=== PATIENT | male | born 1950 | race Caucasian/White ===

== ENCOUNTER 2016-12-06 03:05 | Inpatient (IN) | payer OTHER ==
[~2016-12-06] VITALS: Ht 172.7 cm; Wt 62.0 kg
[2016-12-06] VITALS (9 sets, daily range): BP systolic 103–113; BP diastolic 63–64; PULSE 62–88; TEMP 36.8–37.8; O2SAT 92–97; Ht 172.7 cm; Wt 62.0 kg
[~2016-12-06 03:05] MED LIST: ATOR-22 PO; CHOL1000 PO; CLOP1TAB15 PO; DLN100 PO; FOLI1TAB7 PO; IPRA1AER2 INH; LEVE500T PO; OLODATEROL/TIOTROP INH; OXGN; PHEN32.44 PO; VNTHFA/IN INH
[2016-12-06] MEDS ORDERED: IPRA1AER2 INH (04:05)
[2016-12-06] MEDS ORDERED: OXGN (04:05)
[2016-12-06] MEDS ORDERED: SYMIN160 INH (04:05)
[2016-12-06] MEDS ORDERED: ALBU18002 INH (04:05)
[2016-12-06 04:18] LABS: INR 1.1 (0.9-1.1); PROTHROMBIN TIME (PATIENT) 12.2 SECONDS (9.0-12.0)
[2016-12-06 04:28] LABS: ALT/SGPT 36 U/L (12-78); AST/SGOT 29 U/L (15-37); BLOOD UREA NITROGEN 16 mg/dl (7-18); BUN/CREATININE RATIO 20.1 (10-20); CALCIUM 7.8 mg/dl (8.5-10.1); CARBON DIOXIDE 28 mmol/L (21-32); CHLORIDE 107 mmol/L (98-107); CREATININE 0.78 mg/dl (0.60-1.40); GLUCOSE 158 mg/dl (70-99); POTASSIUM 3.7 mmol/L (3.5-5.1); SODIUM 139 mmol/L (136-145)
[2016-12-06 04:30] LABS: HEMATOCRIT 37.6 % (42-52); MEAN CORPUSCULAR HEMOGLOBIN 36.3 pg (25-34); MEAN CORPUSCULAR HGB CONC 34.6 g/dl (32-36); MEAN PLATELET VOLUME 9.8 fL (7.4-10.4); PLATELET COUNT 94 K/uL (130-400); RED BLOOD COUNT 3.58 M/uL (4.7-6.1); WHITE BLOOD COUNT 13.51 K/uL (4.8-10.8)
[2016-12-06 04:31] LABS: BASO % 0.1 %; BASO ABS # 0.01 K/uL (0-0.2); COMPLETE YES; DOHLE BODIES OCCASIONAL; IG% 0.3 %; LYMPH % 3.5 %; LYMPH ABS # 0.47 K/uL (1.2-3.4); MONO % 9.5 %; NEUT % 86.6 %; PLT ESTIMATE DECREASED
[2016-12-06 04:39] LABS: ALB/GLOB RATIO 1.2 (0.9-2); ALKALINE PHOSPHATASE 110 U/L (45-117); THYROID STIMULATING HORMONE 0.388 uIu/ml (0.300-4.500)
[2016-12-06 04:56] LABS: LYME DISEASE AB IGG NEG (NEG); LYME DISEASE AB IGM NEG (NEG)
[2016-12-06] MEDS ORDERED: ACETAMINOPHEN 500 MG TAB PO STA (06:26)
[2016-12-06] MEDS ORDERED: LEVOFLOXACIN 250 MG TAB PO STA (06:28)
[2016-12-06] MEDS ORDERED: METHYLPREDNISOLONE 125 MG VIAL IV STA (06:29)
[2016-12-06 06:46] LABS: URINE APPEARANCE CLEAR (CLEAR); URINE BILIRUBIN NEG (NEG); URINE COLOR YELLOW; URINE NITRITE NEG (NEG); URINE SPECIFIC GRAVITY 1.019 (1.000-1.030); UROBILINOGEN NEG (NEG); ZZUR CULT IF INDIC CLEAN CATCH YES
[2016-12-06 06:47] LABS: MANUAL MICROSCOPIC REQUIRED? NO; REVIEW REQ? NO
--- NOTE | 2016-12-06 07:21 | DIAGNOSTIC IMAGING REPORT ---
CERVICAL SPINE CT CT DOSE: HISTORY: Neck pain. fall, pain TECHNIQUE: Multiaxial CT images of the cervical spine were performed and reformatted in the sagittal and coronal plane without the use of contrast. A dose lowering technique was utilized adhering to the principles of ALARA. COMPARISON: Cervical spine MRI 06/13/2011. FINDINGS: Emphysema. No pneumothorax. No fracture or subluxation within the cervical spine. Straightening of the lower cervical spine. Prevertebral soft tissues and the C1-C2 interval are intact. Severe degenerative disc disease at C6-C7 and C7-T1. Fusion of the C5-C6 vertebral bodies. Posterior decompression and fusion from C3 through C6 with pedicle screws and rods. The hardware appears intact. IMPRESSION: No fractures within the cervical spine. Postoperative and degenerative changes as described above. Electronically signed by: Rodolfo Villarreal M.D. 12/06/2016 7:20 AM Dictated Date/Time: 12/06/2016 7:15 AM
--- NOTE | 2016-12-06 07:35 | DIAGNOSTIC IMAGING REPORT ---
HEAD WITHOUT CONTRAST (CT) CLINICAL HISTORY: 66 years-old Male presenting with fall. TECHNIQUE: Multidetector CT imaging of the head was performed without the use of intravenous contrast. IV contrast: None. A dose lowering technique was used consistent with the principles of ALARA (as low as reasonably achievable). COMPARISON: 06/13/2011. CT DOSE (mGy.cm): The estimated cumulative dose is 1051.82 mGy.cm. FINDINGS: Property Underwriter topogram: Unremarkable. Ventricles and sulci normal in size. Periventricular and subcortical white matter hypoattenuation, nonspecific but likely indicative of chronic small vessel ischemic change. Old lacunar infarcts in the right basal ganglia, several of which in the region of the posterior limb of the internal capsule are new from prior. Suspected old lacunar infarct in the subcortical white matter of the left frontal lobe, the appearance of which is unchanged from prior. No mass effect or midline shift. No acute territorial infarct. Trace acute subdural hematoma along the left frontotemporal convexity measuring 1 to 2 mm in thickness (for example series 2 image 16). Paranasal sinuses and mastoid air cells clear. Minimal cortical irregularity of the outer table along the squamosal portion of the left temporal bone.. IMPRESSION: 1. Findings concerning for trace acute subdural hematoma along the frontal convexity. Notably, this is discrepant from the preliminary report. If there is clinical need, confirmation with noncontrast MR brain could be obtained. 2. Incomplete fracture of the outer table of the squamosal portion of the left temporal bone suggested. The report will be called/faxed according to standard departmental protocol. Electronically signed by: Bryan Suarez M.D. 12/06/2016 7:33 AM Dictated Date/Time: 12/06/2016 7:28 AM
--- NOTE | 2016-12-06 07:37 | DIAGNOSTIC IMAGING REPORT ---
SINGLE VIEW CHEST CLINICAL HISTORY: Fall. FINDINGS: AP, portable, erect and semierect chest radiographs are compared to study dated 01/09/2016. The examination is degraded by portable technique and patient rotation. The heart is mildly enlarged and there is atherosclerotic calcification of the thoracic aorta. The pulmonary vasculature is noncongested. Advanced emphysema and chronic interstitial thickening are similar to previous. No airspace consolidation is seen typical for pneumonia and there is no large pleural effusion. No pneumothorax is seen. The skeletal structures are osteopenic. Degenerative change is noted throughout the thoracic spine. Fusion hardware is noted in the lower cervical spine. IMPRESSION: Cardiomegaly and emphysema. No acute cardiopulmonary abnormality is seen. Electronically signed by: Aman Diamond M.D. 12/06/2016 7:35 AM Dictated Date/Time: 12/06/2016 7:33 AM
--- NOTE | 2016-12-06 07:38 | DIAGNOSTIC IMAGING REPORT ---
PELVIS 1 OR 2 VIEW ROUTINE CLINICAL HISTORY: 66 years-old Male presenting with fall. TECHNIQUE: Single frontal view of the pelvis was obtained. COMPARISON: None. FINDINGS: Osteopenia suggested. Sacroiliac joints and pubic symphysis congruent. Hip joints congruent. Degenerative changes of the bilateral hip joints noted with grossly preserved joint space loss at least superiorly. Bony pelvis intact. Degenerative changes of the lower lumbar spine. Moderate stool burden. Atherosclerosis. IMPRESSION: 1. No acute osseous injury of the pelvis. 2. Suspected osteopenia. 3. Degenerative changes of the hips and lower spine. Electronically signed by: Bryan Suarez M.D. 12/06/2016 7:36 AM Dictated Date/Time: 12/06/2016 7:35 AM
[2016-12-06] MEDS ORDERED: SODIUM CHLORIDE 0.9% 1000ML 1,000 ML IV STA (07:40)
--- NOTE | 2016-12-06 08:11 | EMERGENCY ROOM VISIT NOTE ---
History Report prepared by Ran: Zabrina Ji Under the Supervision of: Dr. Glory Bejarano D.O. First contact with patient: 03:08 Chief Complaint: FALL Stated Complaint: FALL History of Present Illness The patient is a 66 year old male who presents to the Emergency Room with complaints of an episode of fall [employer]. He presents to the ED by EMS from home. He states he was crawling down the living room steps when he fell. He usually uses a walker to ambulate, but he was not using it today as he misplaced it. He remembers the fall and denies losing consciousness. His states that he seems confused. He states that his head is throbbing. His legs feel uncomfortable. He had some chest discomfort yesterday, but currently does not have any. He denies any vision changes, hip pain, or back pain. He has a history of seizures, but did not have any seizure activity today. He denies any drug use. He has chronic weakness in his legs and was told that he should go for an EMG at some point. He is on Plavix. He has a history of TIA. Source of History: patient, EMS Onset: [employer] Position: other (global) Quality: other (fall) Timing: other (episodic) Associated Symptoms: + headache, No LOC, No chest pain, No back pain Note: Pt denies vision changes, hip pain. Review of Systems See HPI for pertinent positives & negatives. A total of 10 systems reviewed and were otherwise negative. Past Medical & Surgical Medical Problems: (1) COPD (chronic obstructive pulmonary disease) (2) Diabetes mellitus, type II (3) History of seizures (4) History of TIA (transient ischemic attack) (5) Peripheral neuropathy (6) Tobacco use disorder Family History No pertinent family history stated. Social History Smoking Status: Current Every Day Smoker Alcohol Use: none Marital Status: Housing Status: lives with significant other Current/Historical Medications Scheduled Atorvastatin (Lipitor), 10 MG PO DAILY Budesonide/Formoterol Fumarate (Symbicort 160/4.5 Inhaler ), 2 PUFFS INH BID Cholecalciferol (Vitamin D3), 1 TAB PO BID Clopidogrel (Plavix), 75 MG PO DAILY Folic Acid (Folvite), 1 MG PO DAILY Ipratropium-Albuterol (Combivent Respimat), 1 PUFFS INH QID Levetiractam (Levetiracetam), 1,000 MG PO BID Phenobarbital (Phenobarbital), 129.6 MG PO BID Phenytoin Sodium (Dilantin), 200 MG PO BID Scheduled PRN Albuterol Sulfate (Proair Respiclick), 2 PUFFS INH TID PRN for SOB/Wheezing Home O2 Therapy (Oxygen), 2 LITERS NA PRN PRN for AMBULATION Allergies Coded Allergies: No Known Allergies (Unverified , 12/06/16) Physical Exam Vital Signs Date Time Temp Pulse Resp B/P (MAP) Pulse Ox O2 Delivery O2 Flow Rate FiO2 12/06/16 08:00 92 Room Air 12/06/16 07:42 79 20 98/60 92 Room Air 12/06/16 07:19 84 12/06/16 06:38 37.5 12/06/16 06:13 80 20 97/56 93 Room Air 12/06/16 06:12 94 Room Air 12/06/16 05:24 80 16 106/62 93 Room Air 12/06/16 04:01 80 18 102/57 91 Room Air 12/06/16 03:25 88 12/06/16 03:14 38.2 88 22 113/77 94 Room Air Physical Exam GENERAL: alert, well appearing, thin, no distress, non-toxic, smells of tobacco smoke HEAD: small abrasion to the inferolateral aspect of the left periorbital region. EYE EXAM: normal conjunctiva, PERRL and EOM's grossly intact OROPHARYNX: no exudate, no erythema, lips, buccal mucosa, and tongue normal and mucous membranes are dry NECK: supple, no nuchal rigidity, no adenopathy, non-tender LUNGS: Decreased breath sounds bilaterally. No wheezes, rhonchi, rales. Normal chest wall mechanics HEART: no murmurs, S1 normal and S2 normal ABDOMEN: abdomen soft, non-tender, normo-active bowel sounds, no masses, no rebound or guarding. BACK: Back is symmetrical on inspection and there is no deformity, no midline tenderness, no CVA tenderness. SKIN: no rashes and no bruising UPPER EXTREMITIES: upper extremities are grossly normal. LOWER EXTREMITIES: No pitting edema. NEURO EXAM: Normal sensorium, cranial nerves II-XII grossly intact, normal speech, no gross weakness of arms, no gross weakness of legs. Medical Decision & Procedures ER Provider Diagnostic Interpretation: Xray results have been interpreted by me. Chest X-ray: Hyperinflated, no cardiomegaly, no wide mediastinum, no effusion, no focal infiltrate, no pulmonary edema. Pelvis X-ray: No fracture or dislocation. Radiology results have been interpreted by the [facility] radiologist and reviewed by me. CT Head: Comparison with CT from 06/13/11. No ICH, mass effect, or edema. No evidence of acute cortical stroke. Periventricular small vessel ischemic change. No midline shift or hydrocephalus. Old lacunar infarcts involving the bilateral basal ganglia and left stark radiata. Minimal scattered paranasal sinus mucosal thickening. Visualized sinuses and mastoid air cells are clear. CT C spine: No evidence of acute or healing fracture or malalignment. Multilevel spine degenerative changes. Diffuse osteopenia. No critical central canal stenosis or apical pneumothorax. Posterior decompression and osteometallic fusion without gross hardware complications. Atherosclerotic calcifications of the internal carotid arteries of the neck. Biapical scarring and emphysema. HEAD CT NONCONTRAST CT DOSE: 614.27 mGy.cm HISTORY: Follow-up subdural hematoma, fall TECHNIQUE: Multiaxial CT images of the head were performed without the use of intravenous contrast. Automated exposure control was utilized for this study. A dose lowering technique was utilized adhering to the principles of ALARA. Comparison: Head CT 12/06/2016. Findings: The paranasal sinuses and mastoid air cells are clear. The calvarium and skull base are intact. No evidence for left temporal bone fracture. The questionable left-sided subdural hematoma described on the prior study is not clearly identified. However, there are slight increased density along the left tentorium which could represent a component of trace left-sided subdural hematoma. There is also a small focus of increased density within the left posterior parietal location which may also represent trace subdural hematoma. Old lacunar infarcts seen within the right basal ganglia. Mild microvascular ischemic changes are again noted. No midline shift or acute infarct. Impression: Slight increased density along the left tentorium and a small focus of extra-axial increased density posterior to the left parietal lobe consistent with a trace left-sided subdural hematoma. [address] follow-up is recommended to ensure stability. Electronically signed by: Rodolfo Villarreal M.D. 12/06/2016 8:55 AM Dictated Date/Time: 12/06/2016 8:41 AM Laboratory Results 12/06/16 03:39 Red Blood Count 3.58, Mean Corpuscular Volume 105.0, Mean Corpuscular Hemoglobin 36.3, Mean Corpuscular Hemoglobin Concent 34.6, Mean Platelet Volume 9.8, Neutrophils (%) (Auto) 86.6, Lymphocytes (%) (Auto) 3.5, Monocytes (%) ( Auto) 9.5, Eosinophils (%) (Auto) 0.0, Basophils (%) (Auto) 0.1, Neutrophils # ( Auto) 11.70, Lymphocytes # (Auto) 0.47, Monocytes # (Auto) 1.29, Eosinophils # ( Auto) 0.00, Basophils # (Auto) 0.01 12/06/16 03:39 Test 12/06/16 03:39 12/06/16 03:43 12/06/16 06:05 12/06/16 06:31 White Blood Count 13.51 K/uL (4.8-10.8) Red Blood Count 3.58 M/uL (4.7-6.1) Hemoglobin 13.0 g/dL (14.0-18.0) Hematocrit 37.6 % (42-52) Mean Corpuscular Volume 105.0 fL (80-100) Mean Corpuscular Hemoglobin 36.3 pg (25-34) Mean Corpuscular Hemoglobin Concent 34.6 g/dl (32-36) Platelet Count 94 K/uL (130-400) Mean Platelet Volume 9.8 fL (7.4-10.4) Neutrophils (%) (Auto) 86.6 % Lymphocytes (%) (Auto) 3.5 % Monocytes (%) (Auto) 9.5 % Eosinophils (%) (Auto) 0.0 % Basophils (%) (Auto) 0.1 % Neutrophils # (Auto) 11.70 K/uL (1.4-6.5) Lymphocytes # (Auto) 0.47 K/uL (1.2-3.4) Monocytes # (Auto) 1.29 K/uL (0.11-0.59) Eosinophils # (Auto) 0.00 K/uL (0-0.5) Basophils # (Auto) 0.01 K/uL (0-0.2) RDW Standard Deviation 50.4 fL (36.4-46.3) RDW Coefficient of Variation 13.0 % (11.5-14.5) Immature Granulocyte % (Auto) 0.3 % Immature Granulocyte # (Auto) 0.04 K/uL (0.00-0.02) Dohle Bodies OCCASIONAL Platelet Estimate DECREASED Prothrombin Time 12.2 SECONDS (9.0-12.0) Prothromb Time International Ratio 1.1 (0.9-1.1) Anion Gap 4.0 mmol/L (3-11) Est Creatinine Clear Calc Drug Dose 82.1 ml/min Estimated GFR () 109.0 Estimated GFR (Non- 94.1 BUN/Creatinine Ratio 20.1 (10-20) Estimated Average Glucose 123 mg/dl Hemoglobin A1c 5.9 % (4.5-5.6) Calcium Level 7.8 mg/dl (8.5-10.1) Magnesium Level 2.0 mg/dl (1.8-2.4) Total Bilirubin 0.5 mg/dl (0.2-1) Aspartate Amino Transf (AST/SGOT) 29 U/L (15-37) Alanine Aminotransferase (ALT/SGPT) 36 U/L (12-78) Alkaline Phosphatase 110 U/L (45-117) Troponin I < 0.015 ng/ml (0-0.045) Total Protein 6.4 gm/dl (6.4-8.2) Albumin 3.5 gm/dl (3.4-5.0) Globulin 2.9 gm/dl (2.5-4.0) Albumin/Globulin Ratio 1.2 (0.9-2) Lipase 58 U/L (73-393) Thyroid Stimulating Hormone (TSH) 0.387 uIu/ml (0.300-4.500) Ethyl Alcohol mg/dL < 3.0 mg/dl (0-3) Rapid Plasma Reagin NONREACTIVE (NONREACT) Hepatitis C Antibody Screen NEG (NEG) Lyme Disease IgG Antibody NEG (NEG) Lyme Disease IgM Antibody NEG (NEG) Urine Color YELLOW Urine Appearance CLEAR (CLEAR) Urine pH 6.0 (4.5-7.5) Urine Specific [place] 1.019 (1.000-1.030) Urine Protein 1+ (NEG) Urine Glucose (UA) NEG (NEG) Urine Ketones NEG (NEG) Urine Occult Blood NEG (NEG) Urine Nitrite NEG (NEG) Urine Bilirubin NEG (NEG) Urine Urobilinogen NEG (NEG) Urine Leukocyte Esterase NEG (NEG) Urine WBC (Auto) 1-5 /hpf (0-5) Urine RBC (Auto) 0-4 /hpf (0-4) Urine Hyaline Casts (Auto) 1-5 /lpf (0-5) Urine Epithelial Cells (Auto) 10-20 /lpf (0-5) Urine Bacteria (Auto) 1+ (NEG) Influenza Type A Antigen Neg for Influ A (NEG) Influenza Type B Antigen Neg for Influ B (NEG) Test 12/06/16 06:45 12/06/16 07:08 Bedside Lactic Acid Venous 0.98 mmol/L (0.90-1.70) Phenytoin (Dilantin) Level 18.2 mcg/mL (10-20) Laboratory results per my review. Medications Administered Medications (Trade) Dose Ordered Sig/Torri Route Start Time Stop Time Status Last Admin Dose Admin Acetaminophen (Tylenol Tab) 1,000 mg NOW STAT PO 12/06/16 06:26 12/06/16 06:27 DC 12/06/16 06:40 1,000 MG Levofloxacin (Levaquin Tab) 750 mg NOW STAT PO 12/06/16 06:28 12/06/16 06:30 DC 12/06/16 06:43 750 MG Methylprednisolone Sodium Succinate (Solu-Medrol IV) 125 mg NOW STAT IV 12/06/16 06:29 12/06/16 06:32 DC 12/06/16 06:43 125 MG Sodium Chloride 1,000 ml @ 999 mls/hr Q1H1M STAT IV 12/06/16 07:40 12/06/16 08:40 DC 12/06/16 07:48 999 MLS/HR ECG Indication: other (fall) Rate (beats per minute): 81 Rhythm: sinus rhythm Findings: RBBB, other (normal axis, normal QTC) Comparison ECG Date: 08-Jan-2016 Change: no significant change ED Course 0310: The patient was evaluated in room A2. A complete history and physical exam was performed. 0514: I reevaluated the patient. I updated him on the results. He will have an ambulatory trial. He has yet to provide a urine sample. 0617: I reevaluated the patient. His states that he has had worsening confusion and increased weakness which was been most pronounced over the last several days. They care for a toddler grandchild at home. He has not had any recent medication changes. He has been coughing more frequently this week. He fell in the bathroom today and not on the steps as the patient said. Pt is supposed to use a case or walker but often does not. Follows mostly at the [place], and does have chronic leg weakness but hasn't yet had any testing on this. 0626: Acetaminophen 1000 mg PO. 0628: Levofloxacin 750 mg PO. 0629: Solu-Medrol IV 125 mg IV. 0711: I reevaluated the patient. I updated him and his family. I discussed the results with them. They verbalized agreement of the treatment plan. He will be evaluated for further management. 0722: I reviewed the patient's case with Dr. Martino, [facility] hospitalist. He will evaluate the patient for further management. 0755: Updated Dr. Martino. He would like case discussed with neurology. 0808: Discussed with Dr. Hameed. Feels pt could have repeat CT at 6 hr lis and if unchanged could stay here. Would like clarification on questionable temporal bone fracture. 0813: Discussed with Dr. Suarez. Subdural minimal. Cortical irregularity over area of subdural, but no way to tell new vs old. Doesn't violate the inner table of the calvarium. 0816: Updated Dr. Hameed. Feels if repeat head CT without any changes or worsening condition, pt could safely be kept here. 0900: Discussed with Dr. Villarreal - no increased size of subdural. 0910: Updated Dr. Martino. Pt resting comfortably. VS stable. Awakens easily. Medical Decision Differential diagnosis: Etiologies such as fracture, dislocation, intra-abdominal, pneumothorax, intrathoracic , intracranial, neurologic, as well as other traumatic pathologies were entertained. Patient's original complaint was that of a fall, however upon providing additional information, see the patient is also has had decreased into auditory function as well as cognitive decline. Patient's also noted worsening symptoms in the last several days concurrent with a worsening cough. Given patient's history of tobacco abuse and likely underlying COPD, likely COPD exacerbation given fever and leukocytosis here. Cultures drawn as a precaution , no or other acute infectious etiology noted, flu negative urine negative and patient with no other symptoms to suggest underlying GI pathology. Patient given Solu-Medrol and Levaquin. Patient denied any difficulty breathing here. Although CT head and C-spine originally done for fall and were read as negative by overnight stat rad, morning radiologist found a discrepancy which was relayed to me this morning. I then updated hospitalist and patient had been admitted to, discussed with neurology and radiology and a repeat head CT was performed. This showed no change. All this was again related to the admitting hospitalist. Medication Reconcilliation Current Medication List: was personally reviewed by me Blood Pressure Screening Patient's blood pressure: Normal blood pressure Blood pressure disposition: Did not require urgent referral Consults Time Called: 715 Consulting Physician: Dr. Martino [facility] hospitalist Returned Call: [phone] I reviewed the patient's case with him. He will evaluate the patient for further management. Impression Primary Impression: COPD exacerbation Additional Impressions: Fall Subdural hematoma Critical Care I have personally spent greater than 45 minutes of critical care time in the direct management of this patient. This includes bedside care, interpretation of diagnostic studies, and testing, discussion with consultants, patient, and family members, and other required patient management activities. This 45 minutes is in excess of all separately billable procedures. Scribe Attestation The scribe's documentation has been prepared under my direction and personally reviewed by me in its entirety. I confirm that the note above accurately reflects all work, treatment, procedures, and medical decision making performed by me. Departure Information Dispostion Being Evaluated By Hospitalist Referrals Annetta Hernandez PA-C (PCP) Patient Instructions My [facility] Problem Qualifiers Additional Impressions: Fall Encounter type: initial encounter Qualified Codes: W19.XXXA - Unspecified fall, initial encounter
--- NOTE | 2016-12-06 08:56 | DIAGNOSTIC IMAGING REPORT ---
HEAD CT NONCONTRAST CT DOSE: 614.27 mGy.cm HISTORY: Follow-up subdural hematoma, fall TECHNIQUE: Multiaxial CT images of the head were performed without the use of intravenous contrast. Automated exposure control was utilized for this study. A dose lowering technique was utilized adhering to the principles of ALARA. Comparison: Head CT 12/06/2016. Findings: The paranasal sinuses and mastoid air cells are clear. The calvarium and skull base are intact. No evidence for left temporal bone fracture. The questionable left-sided subdural hematoma described on the prior study is not clearly identified. However, there are slight increased density along the left tentorium which could represent a component of trace left-sided subdural hematoma. There is also a small focus of increased density within the left posterior parietal location which may also represent trace subdural hematoma. Old lacunar infarcts seen within the right basal ganglia. Mild microvascular ischemic changes are again noted. No midline shift or acute infarct. Impression: Slight increased density along the left tentorium and a small focus of extra-axial increased density posterior to the left parietal lobe consistent with a trace left-sided subdural hematoma. [address] follow-up is recommended to ensure stability. Electronically signed by: Rodolfo Villarreal M.D. 12/06/2016 8:55 AM Dictated Date/Time: 12/06/2016 8:41 AM
--- NOTE | 2016-12-06 09:52 | History and Physical ---
History & Physical Date & Time of Service: Dec 06, 2016 at 09:51 Chief Complaint: Copd Exacerbation, Subdural Hematoma Primary Care Physician: Annetta Hernandez PA-C History of Present Illness Source: patient, clinic records, hospital records This is a 66yo M with a PMH of COPD, tobacco use disorder, h/o seizures and h/o TIA who presents after a mechanical fall at home. Patient normally ambulates with a cane but misplaced it this week. Was crawling down stairs headfirst when he lost his balance and fell forward onto his left side. Endorses hitting the frontal aspect of his head but denies LOC. Denies any precipitating lightheadedness, seizure, chest pain or SOB. States that his thought he was confused following the fall but he does not feel confused. Endorses chest discomfort yesterday afternoon but states that it resolved last evening. Endorses L-sided headache that is throbbing and is sensitive to the touch. Obtained bruise under L eye during fall but denies any other injuries. Denies lightheadedness, confusion, visual changes, slurred speech, CP, abdominal pain, nausea, vomiting. Takes Plavix for a history of a TIA. Endorses chronic LE numbness. States that he has been falling more frequently lately as a result of this bilateral leg numbness. Endorses 1 fall per month. Has been told by a PCP that he should be evaluated with an EMG for this.Has been diagnosed with DM II in the past but has never taken any medication. Also endorses chills, productive cough. Denies fever, URI symptoms, worsening of baseline dyspnea on exertion, SOB. Has not needed home O2. Has been taking all scheduled inhalers. Past Medical/Surgical History Medical Problems: (1) COPD (chronic obstructive pulmonary disease) Status: Chronic (2) Diabetes mellitus, type II Status: Chronic (3) History of seizures Status: Chronic (4) History of TIA (transient ischemic attack) Status: Chronic (5) Peripheral neuropathy Status: Chronic (6) Tobacco use disorder Status: Chronic Social History Smoking Status: Current Every Day Smoker (1.5 ppd. >40 pack years. ) Alcohol Use: none Marital Status: Housing status: lives with significant other Immunizations History of Influenza Vaccine: No History of Tetanus Vaccine?: Yes History of Pneumococcal: Yes History of Hepatitis B Vaccine: No Allergies Coded Allergies: No Known Allergies (Unverified , 12/06/16) Home Medications Scheduled Atorvastatin (Lipitor), 10 MG PO DAILY Budesonide/Formoterol Fumarate (Symbicort 160/4.5 Inhaler ), 2 PUFFS INH BID Cholecalciferol (Vitamin D3), 1 TAB PO BID Clopidogrel (Plavix), 75 MG PO DAILY Folic Acid (Folvite), 1 MG PO DAILY Ipratropium-Albuterol (Combivent Respimat), 1 PUFFS INH QID Levetiractam (Levetiracetam), 1,000 MG PO BID Phenobarbital (Phenobarbital), 129.6 MG PO BID Phenytoin Sodium (Dilantin), 200 MG PO BID Scheduled PRN Albuterol Sulfate (Proair Respiclick), 2 PUFFS INH TID PRN for SOB/Wheezing Home O2 Therapy (Oxygen), 2 LITERS NA PRN PRN for AMBULATION Review of Systems Constitutional- See HPI Eyes- See HPI ENT- See HPI Pulmonary- See HPI Cardiac- no chest pain, no palpitations, no orthopnea, no dependent edema GI- no nausea, no vomiting, no diarrhea, no melena, no hematochezia - no dysuria, no hematuria Musculoskeletal- no arthralgias, no myalgias Derm- no rashes, no new skin lesions, no changing skin lesions Hematologic- no unusual bruising, no unusual bleeding Lymphatics- no adenopathy Endocrine- no polyuria or polydipsia; no heat or cold intolerance Neuro- See HPI Psych- no anxiety, no depression Physical Exam Vital Signs Date Time Temp Pulse Resp B/P (MAP) Pulse Ox O2 Delivery O2 Flow Rate FiO2 12/06/16 09:34 76 20 114/63 95 Room Air 12/06/16 09:25 77 12/06/16 08:00 92 Room Air 12/06/16 07:42 79 20 98/60 92 Room Air 12/06/16 07:19 84 12/06/16 06:38 37.5 12/06/16 06:13 80 20 97/56 93 Room Air 12/06/16 06:12 94 Room Air 12/06/16 05:24 80 16 106/62 93 Room Air 12/06/16 04:01 80 18 102/57 91 Room Air 12/06/16 03:25 88 12/06/16 03:14 38.2 88 22 113/77 94 Room Air General Appearance: no apparent distress, + cachetic Head: normocephalic, atraumatic, + evidence of trama (Presence of bruising under L eye. No other bruising, scratches noted.) Eyes: PERRL, EOMI, + pertinent finding (Presence of a small injection to conjunctiva lateral to L iris ) ENT: normal ENT inspection (Dry mucous membranes ), hearing grossly normal, pharynx normal Neck: supple, no adenopathy, trachea midline Respiratory/Chest: chest non-tender, no respiratory distress, no accessory muscle use, + decreased breath sounds (No wheezing, rales, rhonci), + pertinent finding (Presence of bruising on L ribs. Tender with inspiration. 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, no motor/sensory deficits, alert, normal mood/affect, oriented x 3 Skin: normal color, warm/dry, no rash Diagnostics Laboratory Results Results Past 24 Hours Test 12/06/16 03:39 12/06/16 03:43 12/06/16 06:05 12/06/16 06:31 Range/Units White Blood Count 13.51 4.8-10.8 K/uL Red Blood Count 3.58 4.7-6.1 M/uL Hemoglobin 13.0 14.0-18.0 g/dL Hematocrit 37.6 42-52 % Mean Corpuscular Volume 105.0 80-100 fL Mean Corpuscular Hemoglobin 36.3 25-34 pg Mean Corpuscular Hemoglobin Concent 34.6 32-36 g/dl Platelet Count 94 130-400 K/uL Mean Platelet Volume 9.8 7.4-10.4 fL Neutrophils (%) (Auto) 86.6 % Lymphocytes (%) (Auto) 3.5 % Monocytes (%) (Auto) 9.5 % Eosinophils (%) (Auto) 0.0 % Basophils (%) (Auto) 0.1 % Neutrophils # (Auto) 11.70 1.4-6.5 K/uL Lymphocytes # (Auto) 0.47 1.2-3.4 K/uL Monocytes # (Auto) 1.29 0.11-0.59 K/uL Eosinophils # (Auto) 0.00 0-0.5 K/uL Basophils # (Auto) 0.01 0-0.2 K/uL RDW Standard Deviation 50.4 36.4-46.3 fL RDW Coefficient of Variation 13.0 11.5-14.5 % Immature Granulocyte % (Auto) 0.3 % Immature Granulocyte # (Auto) 0.04 0.00-0.02 K/uL Dohle Bodies OCCASIONAL Platelet Estimate DECREASED Prothrombin Time 12.2 9.0-12.0 SECONDS Prothromb Time International Ratio 1.1 0.9-1.1 Sodium Level 139 136-145 mmol/L Potassium Level 3.7 3.5-5.1 mmol/L Chloride Level 107 98-107 mmol/L Carbon Dioxide Level 28 21-32 mmol/L Anion Gap 4.0 3-11 mmol/L Blood Urea Nitrogen 16 7-18 mg/dl Creatinine 0.78 0.60-1.40 mg/dl Est Creatinine Clear Calc Drug Dose 82.1 ml/min Estimated GFR () 109.0 Estimated GFR (Non- 94.1 BUN/Creatinine Ratio 20.1 10-20 Random Glucose 158 70-99 mg/dl Calcium Level 7.8 8.5-10.1 mg/dl Magnesium Level 2.0 1.8-2.4 mg/dl Total Bilirubin 0.5 0.2-1 mg/dl Aspartate Amino Transf (AST/SGOT) 29 15-37 U/L Alanine Aminotransferase (ALT/SGPT) 36 12-78 U/L Alkaline Phosphatase 110 45-117 U/L Troponin I < 0.015 0-0.045 ng/ml Total Protein 6.4 6.4-8.2 gm/dl Albumin 3.5 3.4-5.0 gm/dl Globulin 2.9 2.5-4.0 gm/dl Albumin/Globulin Ratio 1.2 0.9-2 Lipase 58 73-393 U/L Thyroid Stimulating Hormone (TSH) 0.388 0.300-4.500 uIu/ml Ethyl Alcohol mg/dL < 3.0 0-3 mg/dl Lyme Disease IgG Antibody NEG NEG Lyme Disease IgM Antibody NEG NEG Urine Color YELLOW Urine Appearance CLEAR CLEAR Urine pH 6.0 4.5-7.5 Urine Specific [place] 1.019 1.000-1.030 Urine Protein 1+ NEG Urine Glucose (UA) NEG NEG Urine Ketones NEG NEG Urine Occult Blood NEG NEG Urine Nitrite NEG NEG Urine Bilirubin NEG NEG Urine Urobilinogen NEG NEG Urine Leukocyte Esterase NEG NEG Urine WBC (Auto) 1-5 0-5 /hpf Urine RBC (Auto) 0-4 0-4 /hpf Urine Hyaline Casts (Auto) 1-5 0-5 /lpf Urine Epithelial Cells (Auto) 10-20 0-5 /lpf Urine Bacteria (Auto) 1+ NEG Influenza Type A Antigen Neg for Influ A NEG Influenza Type B Antigen Neg for Influ B NEG Test 12/06/16 06:45 12/06/16 07:08 Range/Units Bedside Lactic Acid Venous 0.98 0.90-1.70 mmol/L Phenytoin (Dilantin) Level 18.2 10-20 mcg/mL Microbiology Results 12/06/16 Blood Culture, Received Pending 12/06/16 Blood Culture, Received Pending 12/06/16 Urine Culture, Received Pending Diagnostic Radiology Head CT (initial): IMPRESSION: 1. Findings concerning for trace acute subdural hematoma along the frontal convexity. Notably, this is discrepant from the preliminary report. If there is clinical need, confirmation with noncontrast MR brain could be obtained. 2. Incomplete fracture of the outer table of the squamosal portion of the left temporal bone suggested. Head CT (repeated 6 hrs later): Impression: Slight increased density along the left tentorium and a small focus of extra-axial increased density posterior to the left parietal lobe consistent with a trace left-sided subdural hematoma. 12 [address] follow-up is recommended to ensure stability. Cervical spine CT: IMPRESSION: No fractures within the cervical spine. Postoperative and degenerative changes as described above. Pelvis XR: IMPRESSION: 1. No acute osseous injury of the pelvis. 2. Suspected osteopenia. 3. Degenerative changes of the hips and lower spine. CXR: IMPRESSION: Cardiomegaly and emphysema. No acute cardiopulmonary abnormality is seen. EKG Sinus rhythm with Premature atrial complexes Right bundle branch block Impression Assessment and Plan This is a 66yo M with a PMH of COPD, tobacco use disorder, h/o seizures and h/o TIA who presents after a mechanical fall at home. Patient normally ambulates with a cane but misplaced it this week. Subdural hematoma: -S/p mechanical fall onto L side today -Presence of bruise under L eye, small sub-conjunctival hemorrhage of L eye -Initial CT head "Findings concerning for trace acute subdural hematoma along the frontal convexity" -Consulted neuro, who reviewed case and ordered a repeat CT head with showed: -"Slight increased density along the left tentorium and a small focus of extra-axial increased density posterior to the left parietal lobe consistent with a trace left-sided subdural hematoma" -Currently asymptomatic; monitor closely on tele -Repeat CT head in 12 hours -Appreciate further recommendations from neuro -Hold plavix Mechanical fall: H/O Ambulatory Dysfunction with recurrent falls -Likely 2/2 peripheral neuropathy, deconditioning -Work up to determine etiology of neuropathy -PT/OT evals Mild COPD Exacerbation: -Leukocytosis of 13.5, increased sputum production, chills -CXR without evidence of PNA -Continue home inhalers -Added nebs and PO azithromycin -PRN O2 per protocol Peripheral neuropathy: -H/o DM II without medical management -Hgb a1c pending -B12, folate, TSH, RPR ordered H/o seizures: -Stable -Continue home regimen of dilantin, phenobarbitol, keppra H/o TIA: -No current symptoms suggestive of TIA, CVA -Plavix held 2/2 subdural hematoma DM II: -No medical management in past, per patien t -Hgb a1c pending DVT Ppx: SCDs Code status: FULL PCP: ALINA Hernandez ([facility]) Dispo: Plan to return home once medically stable Attending Addendum: The patient was seen and examined Has has decreased sensation in lower extremities for a lone time and will have an OP EMG Has been falling frequently Admitted with another fall with head injury Otherwise no symptoms O/E Hemodynamically stable Chest-clear to ausucltate bilaterally Heart-regular,no murmur appreciated Abdomen -benign Extremities-no edema [id number] Decreased sensation in the both lower extremities Motor power seems normal Labs and Imaging studies were reviewed Agree with the Assessment and plan. Dr Perla Martino Level of Care Telemetry Advanced Directives Existing Living Will: No Existing Power of Hairspring Setter: No Resuscitation Status FULL RESUSCITATION VTE Prophylaxis VTE Risk Assessment Done? Y/N: Yes Risk Level: Moderate Given or contraindicated: SCD's
[2016-12-06 11:34] LABS: ESTIMATED AVERAGE GLUCOSE 123 mg/dl; HA1C FLAG Normal (Normal)
[2016-12-06] MEDS ORDERED: LEVETIRACETAM 500 MG TAB PO ONE (12:15)
[2016-12-06] MEDS ORDERED: PHENYTOIN SODIUM ER 100 MG CAP PO ONE (12:15)
[2016-12-06] MEDS ORDERED: PHENOBARBITAL 32.4 MG TAB PO ONE (12:15)
[2016-12-06] MEDS ORDERED: ATORVASTATIN 10 MG TAB PO ONE (12:30)
[2016-12-06] MEDS: LEVETIRACETAM 500 MG TAB PO SCH ×2 (12:45→20:30)
[2016-12-06] MEDS: PHENYTOIN SODIUM ER 100 MG CAP PO SCH ×2 (12:46→20:29)
[2016-12-06] MEDS: PHENOBARBITAL 32.4 MG TAB PO SCH ×2 (12:47→20:30)
[2016-12-06] MEDS: IPRATROPIUM BROMIDE/ALBUTEROL respimat INH INH SCH ×3 (12:49→20:34)
--- NOTE | 2016-12-06 13:59 | Neurology Consultation ---
Neurology Consultation Date of Consultation: Dec 06, 2016. Attending Physician: Arsalan Martino M.D. Primary Care Physician: Annetta Hernandez PA-C Reason for Consultation: trace SDH after fall History of Present Illness Source: patient Marcio is a 66 year old male PMH of COPD, tobacco use disorder, h/o seizures and h/o TIA, peripheral neuropathy, seizure disorder past social history EtOH abuse who presents after a mechanical fall at home. He uses a cane to ambulate but misplaced it this week. He was crawling down stairs headfirst when he lost his balance and fell forward onto his left side. He hit his head but denies LOC. denies lightheadedness, seizure, chest pain or SOB. earlier reported he was confused following the fall but he does not feel confused. He did have some CP the day prior to the fall but he states that resolved spontaneously. Denies lightheadedness, confusion, visual changes, slurred speech, CP, abdominal pain, N,V. He is on Plavix for multiple TIAs in the past. 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 He states he is not DM but his glucose levels have been high. He smokes 1 1/2 ppd cigarettes, and was an EtOH abuser in the past but that was years ago. Past Medical/Surgical History Medical Problems: (1) Fall Status: Acute (2) Fever Status: Acute (3) Hypoxia Status: Acute (4) Lobar pneumonia Status: Acute (5) Subdural hematoma Status: Acute Social History Smoking Status: Current every day smoker Alcohol Use: none Marital Status: Housing Status: lives with significant other Allergies Coded Allergies: No Known Allergies (Unverified , 12/06/16) Current Inpatient Medications Current Inpatient Medications Medications (Trade) Dose Ordered Sig/Torri Route Start Time Stop Time Status Last Admin Dose Admin Acetaminophen (Tylenol Tab) 650 mg Q6H PRN PO 12/06/16 09:45 01/05/17 09:44 Ondansetron HCl (Zofran Inj) 4 mg Q6H PRN IV 12/06/16 09:45 01/05/17 09:44 Atorvastatin Calcium (Lipitor Tab) 10 mg DAILY PO 12/07/16 09:00 01/06/17 08:59 Budesonide/ Formoterol Fumarate (Symbicort 160/ 4.5 Inh) 2 puffs BID INH 12/06/16 21:00 01/05/17 20:59 Cholecalciferol (Vitamin D Tab) 1,000 inter.unit BID PO 12/06/16 21:00 01/05/17 20:59 Folic Acid (Folvite Tab) 1 mg DAILY PO 12/07/16 09:00 01/06/17 08:59 Albuterol/ Ipratropium (Combivent Respimat Inh) 1 puffs QID INH 12/06/16 13:00 01/05/17 12:59 12/06/16 12:49 1 PUFFS Levetiracetam (Keppra Tab) 1,000 mg BID PO 12/06/16 12:30 01/05/17 20:59 12/06/16 12:45 1,000 MG Phenobarbital (Phenobarbital Tab) 129.6 mg BID PO 12/06/16 12:30 01/05/17 20:59 12/06/16 12:47 129.6 MG Phenytoin Sodium (Dilantin Er Cap) 200 mg BID PO 12/06/16 12:30 01/05/17 20:59 12/06/16 12:46 200 MG Albuterol (Ventolin Hfa Inhaler) 2 puffs TID PRN INH 12/06/16 10:00 01/05/17 09:59 Nicotine (Nicoderm Cq 21MG Patch) 1 patch QAM TD 12/07/16 09:00 01/06/17 08:59 Miscellaneous (Remove Nicoderm Patch) 1 ea HS N/A 12/07/16 21:00 01/06/17 20:59 Azithromycin (Zithromax Tab) 500 mg TODAY@1400 PO 12/06/16 14:00 12/06/16 14:01 Ipratropium [place] (Atrovent 0.02% 0.5MG/2.5ML Neb) 0.5 mg Q6R INH 12/06/16 15:00 01/05/17 14:59 Levalbuterol (Xopenex 1.25MG/ 0.5ML Neb) 1.25 mg Q6R INH 12/06/16 15:00 01/05/17 14:59 Azithromycin (Zithromax Tab) 250 mg QAM PO 12/07/16 09:00 12/10/16 09:01 Physical Exam Vital Signs (Past 24 Hrs): Date Time Temp Pulse Resp B/P (MAP) Pulse Ox O2 Delivery O2 Flow Rate FiO2 12/06/16 13:08 70 12/06/16 12:08 95 Room Air 12/06/16 12:08 36.8 66 20 107/64 (78) 95 Room Air 12/06/16 09:51 72 12/06/16 09:34 76 20 114/63 95 Room Air 12/06/16 09:25 77 12/06/16 08:00 92 Room Air 12/06/16 07:42 79 20 98/60 92 Room Air 12/06/16 07:19 84 12/06/16 06:38 37.5 12/06/16 06:13 80 20 97/56 93 Room Air 12/06/16 06:12 94 Room Air 12/06/16 05:24 80 16 106/62 93 Room Air 12/06/16 04:01 80 18 102/57 91 Room Air 12/06/16 03:25 88 12/06/16 03:14 38.2 88 22 113/77 94 Room Air Physical Exam: Constitutional: appearance nourished, thin pale Ears, Nose, Mouth and Throat: mucous membranes moist, no injection and skin normal Cardiovascular: normal S-1 and S-2 and regular rate and rhythm Respiratory: course breath sounds Musculoskeletal no peripheral edema, pulses decreased Skin: ecchymosis around left eye contusion Eyes: extraocular muscles intact (EOMI) and pupils equal, round and reactive to light (PERRL) NEUROLOGIC EXAMINATION: Mental status: Alert and interactive Oriented to full date and location Oriented to person Speech fluent with no evidence of aphasia Cranial Nerves smile eye brow raise symmetric Reflexes: Deep tendon reflexes were symmetrical and graded 2/5 UE, LE decreased, neutral plantar. Sensory: decreased sensation to cool touch vibration to knees, GT proprioception absent bilaterally Coordination: finger to nose without bipass Gait/Stance: Posture lying in bed Motor: Negative for pronator drift of out stretched arms with eyes closed. Strength: hand grasp biceps triceps 5/5 bilaterally, hip flex plantar flex 5/5 bilaterally Laboratory Results Past 24 Hours: 12/06/16 03:39 Red Blood Count 3.58, Mean Corpuscular Volume 105.0, Mean Corpuscular Hemoglobin 36.3, Mean Corpuscular Hemoglobin Concent 34.6, Mean Platelet Volume 9.8, Neutrophils (%) (Auto) 86.6, Lymphocytes (%) (Auto) 3.5, Monocytes (%) ( Auto) 9.5, Eosinophils (%) (Auto) 0.0, Basophils (%) (Auto) 0.1, Neutrophils # ( Auto) 11.70, Lymphocytes # (Auto) 0.47, Monocytes # (Auto) 1.29, Eosinophils # ( Auto) 0.00, Basophils # (Auto) 0.01 12/06/16 03:39 Test 12/06/16 03:39 12/06/16 03:43 12/06/16 06:05 12/06/16 06:31 White Blood Count 13.51 K/uL (4.8-10.8) Red Blood Count 3.58 M/uL (4.7-6.1) Hemoglobin 13.0 g/dL (14.0-18.0) Hematocrit 37.6 % (42-52) Mean Corpuscular Volume 105.0 fL (80-100) Mean Corpuscular Hemoglobin 36.3 pg (25-34) Mean Corpuscular Hemoglobin Concent 34.6 g/dl (32-36) Platelet Count 94 K/uL (130-400) Mean Platelet Volume 9.8 fL (7.4-10.4) Neutrophils (%) (Auto) 86.6 % Lymphocytes (%) (Auto) 3.5 % Monocytes (%) (Auto) 9.5 % Eosinophils (%) (Auto) 0.0 % Basophils (%) (Auto) 0.1 % Neutrophils # (Auto) 11.70 K/uL (1.4-6.5) Lymphocytes # (Auto) 0.47 K/uL (1.2-3.4) Monocytes # (Auto) 1.29 K/uL (0.11-0.59) Eosinophils # (Auto) 0.00 K/uL (0-0.5) Basophils # (Auto) 0.01 K/uL (0-0.2) RDW Standard Deviation 50.4 fL (36.4-46.3) RDW Coefficient of Variation 13.0 % (11.5-14.5) Immature Granulocyte % (Auto) 0.3 % Immature Granulocyte # (Auto) 0.04 K/uL (0.00-0.02) Dohle Bodies OCCASIONAL Platelet Estimate DECREASED Prothrombin Time 12.2 SECONDS (9.0-12.0) Prothromb Time International Ratio 1.1 (0.9-1.1) Anion Gap 4.0 mmol/L (3-11) Est Creatinine Clear Calc Drug Dose 82.1 ml/min Estimated GFR () 109.0 Estimated GFR (Non- 94.1 BUN/Creatinine Ratio 20.1 (10-20) Estimated Average Glucose 123 mg/dl Hemoglobin A1c 5.9 % (4.5-5.6) Calcium Level 7.8 mg/dl (8.5-10.1) Magnesium Level 2.0 mg/dl (1.8-2.4) Total Bilirubin 0.5 mg/dl (0.2-1) Aspartate Amino Transf (AST/SGOT) 29 U/L (15-37) Alanine Aminotransferase (ALT/SGPT) 36 U/L (12-78) Alkaline Phosphatase 110 U/L (45-117) Troponin I < 0.015 ng/ml (0-0.045) Total Protein 6.4 gm/dl (6.4-8.2) Albumin 3.5 gm/dl (3.4-5.0) Globulin 2.9 gm/dl (2.5-4.0) Albumin/Globulin Ratio 1.2 (0.9-2) Lipase 58 U/L (73-393) Thyroid Stimulating Hormone (TSH) 0.387 uIu/ml (0.300-4.500) Ethyl Alcohol mg/dL < 3.0 mg/dl (0-3) Hepatitis C Antibody Screen NEG (NEG) Lyme Disease IgG Antibody NEG (NEG) Lyme Disease IgM Antibody NEG (NEG) Urine Color YELLOW Urine Appearance CLEAR (CLEAR) Urine pH 6.0 (4.5-7.5) Urine Specific [place] 1.019 (1.000-1.030) Urine Protein 1+ (NEG) Urine Glucose (UA) NEG (NEG) Urine Ketones NEG (NEG) Urine Occult Blood NEG (NEG) Urine Nitrite NEG (NEG) Urine Bilirubin NEG (NEG) Urine Urobilinogen NEG (NEG) Urine Leukocyte Esterase NEG (NEG) Urine WBC (Auto) 1-5 /hpf (0-5) Urine RBC (Auto) 0-4 /hpf (0-4) Urine Hyaline Casts (Auto) 1-5 /lpf (0-5) Urine Epithelial Cells (Auto) 10-20 /lpf (0-5) Urine Bacteria (Auto) 1+ (NEG) Influenza Type A Antigen Neg for Influ A (NEG) Influenza Type B Antigen Neg for Influ B (NEG) Test 12/06/16 06:45 12/06/16 07:08 12/06/16 12:01 12/06/16 12:50 Bedside Lactic Acid Venous 0.98 mmol/L (0.90-1.70) Phenytoin (Dilantin) Level 18.2 mcg/mL (10-20) Vitamin B12 Level 494 pg/mL (211-911) Folate > 24.00 ng/mL (>5.38) Imaging CT head- Slight increased density along the left tentorium and a small focus of extra-axial increased density posterior to the left parietal lobe consistent with a trace left-sided subdural hematoma. 12 to [address] follow-up is recommended to ensure stability. CT c spine- No fractures within the cervical spine. Postoperative and degenerative changes as described above. Impression 66 year old male s/p fall from standing down stairs- SDH Plan 1. peripheral neuropathy- severe [facility] 2. seizure disorder- continue Keppra 1000 mg BID, phenobarbital 32.4 mg BID and dilantin 200 mg BID- levels pending 3. repeat CT head in 24 hours to evaluate for stability of SDH. will repeat now for increase 4. hold plavix for now 5. PT/OT for discharge needs- may need walker to avoid further falls 6. neurology in [place] [facility] consider taper of dilantin which can cause peripheral neuropathy 7. if increased SDH consider transfer- CT head is improved continue to monitor I have seen and discussed above patient with Dr Marina Hameed, neurology Pt seen and examined, fell crawling down stairs, no headache prior, new neuro sx before or after. CT poss SDH along tent, increased on second scan. Scan this evening no obvious SDH. Pt awake, alert, Ecchymoses below L eye, skull no deformities, nl EOM, mild horiz nystagmus, mild tremor on FNF, HS mildly dystaxic, gait modestly ataxic. Sensory exam not repeated. Imp fall with poss SDH v artifact while on Plavix. I would perform an MRI in am, if no bleed restart Plavix. Pt appears to have neuropathy and could have some cerebellar ataxia. He has sx of neuropathy and is not diabetic and has not had etoh for many years, could be related to dilantin. The MRI will be helpful is assessing etiology of gait, ie infarcts (seen on CT), cerebellar atrophy. Check trough dilantin and will adjust downward if elevated. The pt has been on dilantin and Phb with breakthrough auras. Auras have resolved on Keppra. [facility]ing [facility]. Pt also is a smoker and a paraneoplastic etiology of gait dyfunction such as a remote effect of cancer needs to be considered. SLY Hameed MD
[2016-12-06] MEDS ORDERED: AZITHROMYCIN 250 MG TAB PO SCH (14:00)
[2016-12-06] MEDS ORDERED: LEVALBUTEROL/IPRATROPIUM NEB INH SCH (15:00)
[2016-12-06] MEDS: LEVALBUTEROL 1.25MG/0.5ML NEB INH SCH ×2 (15:00→19:36)
[2016-12-06] MEDS: IPRATROPIUM BROMIDE NEB SOLN 0.02% 2.5 ML VIAL INH SCH ×2 (15:00→19:36)
--- NOTE | 2016-12-06 16:41 | DIAGNOSTIC IMAGING REPORT ---
CT HEAD WITHOUT CONTRAST (CT) CLINICAL HISTORY: Subdural hemorrhage. COMPARISON STUDY: 12/06/2016 TECHNIQUE: Axial CT of the brain is performed from the vertex to the skull base. IV contrast was not administered for this examination. A dose lowering technique was utilized adhering to the principles of ALARA. CT DOSE: 1694.96 mGycm FINDINGS: No intra or extra-axial mass lesions are visualized. There is no CT evidence of acute cortical infarction. There is no evidence of midline shift. There is no acute hemorrhage. No calvarial fractures are visualized. There are patchy white matter hypodensities likely on a small vessel basis. There is an old lacunar infarct in the region the posterior limb of the right internal capsule. Right-sided basal ganglia lacunar infarcts are also visualized. There is no evidence of pathologic ventricular dilatation. There is no evidence of acute sinusitis The previously described subdural hematoma is not visualized the current examination IMPRESSION: 1. No acute intracranial findings. 2. The previously queried subdural hematoma is no longer visualized. Electronically signed by: Augusto Lara M.D. 12/06/2016 4:40 PM Dictated Date/Time: 12/06/2016 4:37 PM
[2016-12-06] MEDS: BUDESONIDE/FORMOTEROL FUMARATE 160/4.5 60 PUFFS/INHALER INH SCH (20:29)
[2016-12-06] MEDS: CHOLECALCIFEROL 1000 INTER.UNIT TAB PO SCH (20:30)
[2016-12-07] VITALS (11 sets, daily range): BP systolic 97–132; BP diastolic 53–74; PULSE 63–78; TEMP 36.7–37.6; O2SAT 91–95
[2016-12-07] MEDS: IPRATROPIUM BROMIDE NEB SOLN 0.02% 2.5 ML VIAL INH SCH ×4 (01:57→19:06)
[2016-12-07] MEDS: LEVALBUTEROL 1.25MG/0.5ML NEB INH SCH ×4 (01:57→19:06)
[2016-12-07] MEDS ORDERED: GADAVIST IV PRN (09:15)
[2016-12-07] MEDS: PHENOBARBITAL 32.4 MG TAB PO SCH ×2 (09:15→20:21)
--- NOTE | 2016-12-07 09:29 | DIAGNOSTIC IMAGING REPORT ---
MRI OF THE BRAIN COMBO CLINICAL HISTORY: Follow-up subdural hematoma. COMPARISON STUDY: CT scans of the brain dated 12/06/2016. TECHNIQUE: MRI of the brain was performed utilizing various T1 and T2-weighted sequences in the axial, sagittal, and coronal planes. Contrast-enhanced sequences were acquired following the administration of 6 cc of Gadavist. FINDINGS: Brain parenchyma: There are age-related involutional changes noting moderate patchy subcortical and periventricular microangiopathic disease. Chronic lacunar infarcts are seen within the right basal ganglia, the right caudate head, in the john. There is no hemorrhage or mass effect. There is no restricted diffusion to suggest acute ischemia. No enhancing mass lesion is identified on the postcontrast images. Schwartz-white matter differentiation is preserved. There is trace subdural hematoma seen on the left convexity and the left tentorium. This measures less than 2 mm in thickness. The cerebellar tonsils are normal in configuration. Ventricles, sulci, and cisterns: Prominent secondary to involutional change. Pituitary and sella: Unremarkable. Intracranial vasculature: Normal flow voids are maintained at the skull base. Orbits: The bony orbits are grossly intact. Orbital contents are normal in appearance. Sinuses and mastoids: Trace mucosal thickening is seen in the ethmoid sinuses on the left frontal sinus. The remaining paranasal sinuses are clear. The mastoid air cells are well pneumatized. Calvarium: Unremarkable. Cervical cord: Partially visualized cervical spinal cord is normal in morphology and signal intensity. IMPRESSION: 1. There is trace subdural hemorrhage identified along the left convexity and the left tentorium cerebelli. There is no associated mass effect. 2. There is no parenchymal hematoma, enhancing mass, or evidence of acute ischemia. Electronically signed by: Aman Diamond M.D. 12/07/2016 9:28 AM Dictated Date/Time: 12/07/2016 9:17 AM
[2016-12-07] MEDS: IPRATROPIUM BROMIDE/ALBUTEROL respimat INH INH SCH ×4 (09:36→20:18)
[2016-12-07] MEDS: BUDESONIDE/FORMOTEROL FUMARATE 160/4.5 60 PUFFS/INHALER INH SCH ×2 (09:37→20:19)
[2016-12-07] MEDS: PHENYTOIN SODIUM ER 100 MG CAP PO SCH ×2 (09:39→20:20)
[2016-12-07] MEDS: LEVETIRACETAM 500 MG TAB PO SCH ×2 (09:40→20:22)
[2016-12-07] MEDS: ATORVASTATIN 10 MG TAB PO SCH (09:41)
[2016-12-07] MEDS: CHOLECALCIFEROL 1000 INTER.UNIT TAB PO SCH ×2 (09:42→20:22)
[2016-12-07] MEDS: NICOTINE 21 MG/24 HR TDSY TD SCH ×2 (09:43→15:57)
[2016-12-07] MEDS: AZITHROMYCIN 250 MG TAB PO SCH (09:43)
[2016-12-07] MEDS ORDERED: PIPERACILL/TAZOBAC IV 4.5 GM in DEXTROSE 5% 100ML 100 ML IV SCH (09:45)
[2016-12-07] MEDS ORDERED: PIPERACILL/TAZOBAC IV 4.5 GM in DEXTROSE 5% 100ML 100 ML IV ONE (10:00)
[2016-12-07] MEDS ORDERED: PIPERACILL/TAZOBAC CONSULT ACTIVE PRN (10:15)
[2016-12-07] MEDS: ALBUTEROL HFA 8 GM INHALER INH PRN (12:36)
--- NOTE | 2016-12-07 14:33 | Progress Note ---
Internal Med Progress Note Date of Service: Dec 07, 2016. Provider Documentation: SUBJECTIVE: The patient was seen and examined Wants to smoke and does not want to quit Ongoing ambulatory dysfunction No new symptoms OBJECTIVE: Vital Signs-as noted below Exam: General-No distress at rest Eyes-normal ENT-normal Neck-supple Lungs-decreased breath sound ,minimal wheezing Heart-Regular,no murmur appreciated Abdomen-Benign,no masses,bowel sound present Extremities-No edema Neuro-AAOx3 Loss of sensation lower extremities Ambulatory dysfunction Lab data as noted below. ASSESSMENT & PLAN: This is a 66yo M with a PMH of COPD, tobacco use disorder, h/o seizures and h/o TIA who presents after a mechanical fall at home. Patient normally ambulates with a cane but misplaced it this week. Subdural hematoma: -S/p mechanical fall onto L side today -Presence of bruise under L eye, small sub-conjunctival hemorrhage of L eye -Initial CT head "Findings concerning for trace acute subdural hematoma along the frontal convexity" -Consulted neuro, who reviewed case and ordered a repeat CT head with showed: -"Slight increased density along the left tentorium and a small focus of extra-axial increased density posterior to the left parietal lobe consistent with a trace left-sided subdural hematoma" -Currently asymptomatic; monitor closely on tele -Repeat CT head in 12 hours -Appreciate further recommendations from neuro -Hold Plavix - Repeat CT of the Head-Hemorrhage cleared -MRI-shows very minimal SAH -Pt is totally asymptomatic Mechanical fall: H/O Ambulatory Dysfunction with recurrent falls -Likely 2/2 peripheral neuropathy, deconditioning -Work up to determine etiology of neuropathy -PT/OT evals Mild COPD Exacerbation: -Leukocytosis of 13.5, increased sputum production, chills -CXR without evidence of PNA -Continue home inhalers -Added nebs and PO azithromycin -PRN O2 per protocol -No acute issue Tobacco Use Disorder Has had a long discussion Will not quit smoking Will not take any Nicotine,Meds and or Gum Peripheral neuropathy: -H/o DM II without medical management -Hgb a1c pending -5.9 -B12, folate, TSH, RPR ordered -normal -Cause could be DM II and Phenytoin and or Idiopathic H/o seizures: -Stable -Continue home regimen of Dilantin, phenobarbital, Keppra -Dilantin and Phenobarbital levels are therapeutic -Keppra level pending H/o TIA: -No current symptoms suggestive of TIA, CVA -Plavix held 2/2 subdural hematoma DM II: -No medical management in past, per patien t -Hgb a1c pending DVT Ppx: SCDs Code status: FULL PCP: ALINA Hernandez ([facility]) Dispo: Plan to return home once medically stable Vital Signs: Date Time Temp Pulse Resp B/P (MAP) Pulse Ox O2 Delivery O2 Flow Rate FiO2 12/07/16 11:34 36.7 66 20 95 12/07/16 11:23 36.7 66 20 122/74 (90) 95 Room Air 12/07/16 11:13 36.8 66 109/64 (79) 95 Room Air 12/07/16 10:06 95 Room Air 12/07/16 08:07 37.1 63 22 103/53 (70) 93 12/07/16 08:00 95 Room Air 12/07/16 04:17 37.6 73 20 104/65 (78) 95 Room Air 12/07/16 04:00 93 Room Air 12/07/16 00:40 36.9 78 20 111/54 (73) 92 Room Air 12/06/16 23:59 93 Room Air 12/06/16 20:35 93 Room Air 12/06/16 19:02 37.8 69 16 112/63 (79) 94 Room Air 12/06/16 16:01 93 Room Air 12/06/16 15:43 88 18 93 Room Air 12/06/16 14:59 37.1 71 16 103/64 (77) 97 Room Air 12/06/16 14:29 36.8 62 16 113/64 (80) 95 Room Air 12/06/16 14:22 36.8 70 20 107/64 95
--- NOTE | 2016-12-07 14:51 | Neurology Progress Notes ---
Neurology Progress Note Date of Service Dec 07, 2016. Mignon Buckley is a 66 year old male PMH of COPD, tobacco use disorder, h/o seizures and h/o TIA, peripheral neuropathy, seizure disorder past social history EtOH abuse who presents after a mechanical fall at home. He uses a cane to ambulate but misplaced it this week. He was crawling down stairs headfirst when he lost his balance and fell forward onto his left side. He hit his head but denies LOC. denies lightheadedness, seizure, chest pain or SOB. earlier reported he was confused following the fall but he does not feel confused. He did have some CP the day prior to the fall but he states that resolved spontaneously. Denies lightheadedness, confusion, visual changes, slurred speech, CP, abdominal pain, N,V. He is on Plavix for multiple TIAs in the past. [facility] [place] he is an x [employer] and was scheduled for an EMG today with a neurologist due to his ongoing peripheral neuropathy. He states he is not DM but his glucose levels have been high. He smokes 1 1/2 ppd cigarettes does not want to quit, and was an EtOH abuser in the past but that was years ago. Today he just wants to go home. He wants to smoke a cigarette. denies CP, SOB, abdominal pain. +weakness, unsteady gait Objective Date Time Temp Pulse Resp B/P (MAP) Pulse Ox O2 Delivery O2 Flow Rate FiO2 12/07/16 11:34 36.7 66 20 95 12/07/16 11:23 36.7 66 20 122/74 (90) 95 Room Air 12/07/16 11:13 36.8 66 109/64 (79) 95 Room Air 12/07/16 10:06 95 Room Air 12/07/16 08:07 37.1 63 22 103/53 (70) 93 12/07/16 08:00 95 Room Air 12/07/16 04:17 37.6 73 20 104/65 (78) 95 Room Air 12/07/16 04:00 93 Room Air 12/07/16 00:40 36.9 78 20 111/54 (73) 92 Room Air 12/06/16 23:59 93 Room Air 12/06/16 20:35 93 Room Air 12/06/16 19:02 37.8 69 16 112/63 (79) 94 Room Air 12/06/16 16:01 93 Room Air 12/06/16 15:43 88 18 93 Room Air 12/06/16 14:59 37.1 71 16 103/64 (77) 97 Room Air no new labs Imaging: MRI brain w/wo - . There is trace subdural hemorrhage identified along the left convexity and the left tentorium cerebelli. There is no associated mass effect. There is no parenchymal hematoma, enhancing mass, or evidence of acute ischemia. Exam: Physical Exam: Constitutional: appearance thin pale weak Ears, Nose, Mouth and Throat: mucous membranes moist, no injection and skin normal, eyes normal Cardiovascular: normal S-1 and S-2 and regular rate and rhythm Respiratory: course breath sounds Musculoskeletal: no peripheral edema Skin: very thin pale Eyes: extraocular muscles intact (EOMI) and pupils equal, round and reactive to light (PERRL) NEUROLOGIC EXAMINATION: Mental status: Alert and interactive Oriented to full date and location Oriented to person Speech fluent with no evidence of aphasia Cranial Nerves smile eye brow raise symmetric Reflexes: Deep tendon reflexes were symmetrical and graded 2/5. Plantar responses were flexor. Sensory: loss of sensations to vibration, cool touch, GT proprioception absent Coordination: finger to nose without bi pass Gait/Stance: Posture sitting on side of bed. content movement of trunk and arms Motor: Negative for pronator drift of out stretched arms with eyes closed. 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/5 bilaterally, hip flex plantar flex ext bilaterally 5/5 Current Inpatient Medications Medications (Trade) Dose Ordered Sig/[facility] Route Start Time Stop Time Status Last Admin Dose Admin Acetaminophen (Tylenol Tab) 650 mg Q6H PRN PO 12/06/16 09:45 01/05/17 09:44 Ondansetron HCl (Zofran Inj) 4 mg Q6H PRN IV 12/06/16 09:45 01/05/17 09:44 Atorvastatin Calcium (Lipitor Tab) 10 mg DAILY PO 12/07/16 09:00 01/06/17 08:59 12/07/16 09:41 10 MG Budesonide/ Formoterol Fumarate (Symbicort 160/ 4.5 Inh) 2 puffs BID INH 12/06/16 21:00 01/05/17 20:59 12/07/16 09:37 2 PUFFS Cholecalciferol (Vitamin D Tab) 1,000 inter.unit BID PO 12/06/16 21:00 01/05/17 20:59 12/07/16 09:42 1,000 INTER.UNIT Folic Acid (Folvite Tab) 1 mg DAILY PO 12/07/16 09:00 01/06/17 08:59 12/07/16 09:39 1 MG Albuterol/ Ipratropium (Combivent Respimat Inh) 1 puffs QID INH 12/06/16 13:00 01/05/17 12:59 12/07/16 12:37 1 PUFFS Levetiracetam (Keppra Tab) 1,000 mg BID PO 12/06/16 12:30 01/05/17 20:59 12/07/16 09:40 1,000 MG Phenobarbital (Phenobarbital Tab) 129.6 mg BID PO 12/06/16 12:30 01/05/17 20:59 12/07/16 09:15 129.6 MG Phenytoin Sodium (Dilantin Er Cap) 200 mg BID PO 12/06/16 12:30 01/05/17 20:59 12/07/16 09:39 200 MG Albuterol (Ventolin Hfa Inhaler) 2 puffs TID PRN INH 12/06/16 10:00 01/05/17 09:59 12/07/16 12:36 2 PUFFS Nicotine (Nicoderm Cq 21MG Patch) 1 patch QAM TD 12/07/16 09:00 01/06/17 08:59 Miscellaneous (Remove Nicoderm Patch) 1 ea HS N/A 12/07/16 21:00 01/06/17 20:59 Ipratropium [place] (Atrovent 0.02% 0.5MG/2.5ML Neb) 0.5 mg Q6R INH 12/06/16 15:00 01/05/17 14:59 12/07/16 09:36 0.5 MG Levalbuterol (Xopenex 1.25MG/ 0.5ML Neb) 1.25 mg Q6R INH 12/06/16 15:00 01/05/17 14:59 12/06/16 15:00 1.25 MG Azithromycin (Zithromax Tab) 250 mg QAM PO 12/07/16 09:00 12/10/16 09:01 12/07/16 09:43 250 MG Gadobutrol (Gadavist) 6 mmol UD PRN IV 12/07/16 09:15 12/11/16 09:14 Piperacillin Sod/ Tazobactam Sod (Consult) 1 ea UD PRN N/A 12/07/16 10:15 01/06/17 10:14 Piperacillin Sod/ Tazobactam Sod 3.375 gm/Dextrose 115 ml @ 28.75 mls/ hr Q8H IV 12/07/16 16:00 12/17/16 15:59 Impression 66 year old male s/p fall from standing down stairs- SDH Plan 1. peripheral neuropathy- severe [facility]- may want to switch off of dilantin 2. seizure disorder- continue Keppra 1000 mg BID, phenobarbital 32.4 mg BID and dilantin 200 mg bid decreased to 200 mg am 150 mg pm recommend tapering to off by [facility] likely causing some balance issues 3. repeat CT head in 24 hours to evaluate for stability of SDH. 4. hold plavix 75 mg daily for now restart in 7 days 5. PT/OT for discharge needs- may need walker to avoid further falls 6. neurology in [facility] consider taper of dilantin which can cause peripheral neuropathy 7. if increased SDH consider transfer- CT head is improved continue to monitor 8. MRI still trace of SDH present 9. dilantin level in [address] Hameed attempted to call to discuss patient but there was no answer I have seen and discussed above patient with Dr Marina Hameed, neurology.Pt seen and examined. Pt with care home sz disorder, imbalance with fall. MRI confirms tiny SDH, asyptomatic except for mild headache. He has mild ataxia on FNF, and significant on HS. REc decreasing Dilantin to 350 mg daily with level in 7 d. It is likely contributing to ataxia both acutely (high nml trough level), chronic effects on cerebellum and also poss peripheral neuropathy. As pt has not had another sz or aura since keppra [facility] may want to gradually taper and dc dilantin. [facility] in [facility] of working up neuropathy. Given wt loss a paraneoplastic etiology should be considered. Re SDH provided pt clinically stable without significant headache could restart Plavix in 1 week. SLY Hameed MD
[2016-12-07] MEDS: PIPERACILL/TAZOBAC IV 3.375 GM in DEXTROSE 5% 100ML IV SCH ×2 (15:51→23:36)
[2016-12-07] MEDS: ACETAMINOPHEN 325 MG TAB PO PRN (17:58)
[2016-12-07] MEDS: ONDANSETRON INJ 2 MG/ML 2 ML VIAL IV PRN (17:58)
[2016-12-07] MEDS: PHENYTOIN 50 MG CHEW PO SCH (20:19)
[2016-12-08] MEDS: IPRATROPIUM BROMIDE NEB SOLN 0.02% 2.5 ML VIAL INH SCH ×4 (02:03→19:05)
[2016-12-08] MEDS: LEVALBUTEROL 1.25MG/0.5ML NEB INH SCH ×4 (02:03→19:06)
--- NOTE | 2016-12-08 06:11 | Clinical Documentation Query ---
CLINICAL DOCUMENTATION QUERY 66 year old male who presents with SDH after fall. He presented febrile, leukocytotic, and with +UC In your clinical opinion is this patient also being managed for: ( + ) UTI treated with IV Zosyn ( ) Not Agree ( ) Other explanation of clinical findings (Please Explain) ( ) Unable to determine (Please Define) ( ) Need to Discuss The medical record reflects the following clinical findings, treatment, and risk factors. Clinical Indicators: Tempt 38.2, WBC's 13.50, UC +Enterococcus Treatment: IV Zosyn Risk Factors: Age Please clarify and document your clinical opinion in the progress notes and discharge summary. Terms such as "probable", "suspected", "likely", "questionable", "possible", or "still to be ruled out" are acceptable. IF IN AGREEMENT, YOU MUST DOCUMENT ABOVE DIAGNOSTIC STATEMENT IN DAILY PROGRESS NOTES AND DISCHARGE SUMMARY. This document is not part of the patient's record. Thank You, Guanakito Sharma, RN [phone]
[2016-12-08 07:40] VITALS: BP 119/70; PULSE 71; TEMP 37.2; O2SAT 96
[2016-12-08] MEDS: BUDESONIDE/FORMOTEROL FUMARATE 160/4.5 60 PUFFS/INHALER INH SCH ×2 (07:59→20:20)
[2016-12-08 08:00] VITALS: O2SAT 96
[2016-12-08] MEDS: CHOLECALCIFEROL 1000 INTER.UNIT TAB PO SCH ×2 (08:01→20:19)
[2016-12-08] MEDS: PHENYTOIN SODIUM ER 100 MG CAP PO SCH ×2 (08:01→20:19)
[2016-12-08] MEDS: AZITHROMYCIN 250 MG TAB PO SCH (08:01)
[2016-12-08] MEDS: ATORVASTATIN 10 MG TAB PO SCH (08:01)
[2016-12-08] MEDS: LEVETIRACETAM 500 MG TAB PO SCH ×2 (08:02→20:19)
[2016-12-08] MEDS: IPRATROPIUM BROMIDE/ALBUTEROL respimat INH INH SCH ×4 (08:03→20:21)
[2016-12-08] MEDS: PHENOBARBITAL 32.4 MG TAB PO SCH ×2 (08:05→20:26)
[2016-12-08] MEDS: PIPERACILL/TAZOBAC IV 3.375 GM in DEXTROSE 5% 100ML IV SCH (09:16)
[2016-12-08] MEDS: NICOTINE 21 MG/24 HR TDSY TD SCH (09:16)
--- NOTE | 2016-12-08 13:14 | Psychiatric Progress Notes ---
Progress Note Date of Service Dec 08, 2016. Interval History 66-year-old male with the below mentioned medical conditions, admitted to the hospital status post mechanical fall. We're consulted to evaluate depression. Information is gathered from the patient, patient's daughter Chastity, and the electronic medical record. All are considered to be reliable. Chief Complaint "Short and miserable.". Subjective Patient was seen & assessed interval progress reviewed. Marcio is alert and cooperative. He says that he does not see himself as depressed but describes himself as "short and miserable". He is anxious to be discharged. He reports that for months or more he has had low energy and motivation, knowing that there are things he should do but can't get off of the couch to do them. He frequently falls asleep on the couch during the day, and is then up several times during the night. His appetite has been poor and over the last few years has gone from 220 lbs to about 130 per patient report. He denies that he is a chronic worrier, but says that he is worried currently about his peripheral neuropathy impairing his ability to ambulate any distance. His legs tire easily , and going to the mailbox and back is about all he can manage. His daughter Chastity joins us, and reports that the family has observed him to have poor concentration, distractibility, lethargy, and impaired memory. They are also worried about his constant restlessness, and spastic movements. During the interview he is constantly changing positions, attempted to put a lid on a cup without success, and tried to put his elbow on the bedside table but missed it. He denies having any SI, He denies any aud/vis hallucinations. He does say that [facility] point [facility]'s [facility], but then retracted it. He scsors 14/21 on GAD7, 2/5 on Mini Cog, and 18 on PHQ 9. Review of Systems Constitutional: + fatigue ENT: No hearing loss, No unusual epistaxis, No nasal symptoms, No sore throat, No tinnitus, No dental problems, No trouble swallowing, No problem reported Respiratory: + cough (smoker) Cardiovascular: No chest pain, No orthopnea, No PND, No edema, No claudication , No palpitations, No problem reported Abdomen: No pain, No nausea, No vomiting, No diarrhea, No constipation, No GI bleeding, No problem reported Musculoskeletal: + problem reported (restlessness, minor spasticity to movements of upper arms) Neurologic: + weakness ( in BLE) Psychiatric: + depression symptoms, + anxiety Data Vital Signs Last 24 Hrs: Date Time Temp Pulse Resp B/P (MAP) Pulse Ox O2 Delivery O2 Flow Rate FiO2 12/08/16 08:00 96 Room Air 12/08/16 07:40 37.2 71 20 119/70 (86) 96 12/08/16 00:00 Room Air 12/07/16 23:55 37.2 72 20 97/63 (74) 95 Room Air 12/07/16 16:15 Room Air 12/07/16 14:56 37.0 70 16 132/59 (83) 91 Room Air Meds Administered Last 24 Hrs: Meds Administered (Past 24Hrs) Medications (Trade) Dose Ordered Sig/[facility]ri Route Start Time Stop Time Status Last Admin Dose Admin Atorvastatin Calcium (Lipitor Tab) 10 mg DAILY PO 12/07/16 09:00 01/06/17 08:59 12/08/16 08:01 10 MG Budesonide/ Formoterol Fumarate (Symbicort 160/ 4.5 Inh) 2 puffs BID INH 12/06/16 21:00 01/05/17 20:59 12/08/16 07:59 2 PUFFS Cholecalciferol (Vitamin D Tab) 1,000 inter.unit BID PO 12/06/16 21:00 01/05/17 20:59 12/08/16 08:01 1,000 INTER.UNIT Folic Acid (Folvite Tab) 1 mg DAILY PO 12/07/16 09:00 01/06/17 08:59 12/08/16 08:00 1 MG Albuterol/ Ipratropium (Combivent Respimat Inh) 1 puffs QID INH 12/06/16 13:00 01/05/17 12:59 12/08/16 08:03 1 PUFFS Nicotine (Nicoderm Cq 21MG Patch) 1 patch QAM TD 12/07/16 09:00 01/06/17 08:59 12/08/16 09:16 1 PATCH Miscellaneous (Remove Nicoderm Patch) 1 ea HS N/A 12/07/16 21:00 01/06/17 20:59 12/07/16 20:18 1 EA Azithromycin (Zithromax Tab) 500 mg TODAY@1400 PO 12/06/16 14:00 12/06/16 14:01 DC 12/06/16 17:06 500 MG Ipratropium [place] (Atrovent 0.02% 0.5MG/2.5ML Neb) 0.5 mg Q6R INH 12/06/16 15:00 01/05/17 14:59 12/07/16 09:36 0.5 MG Levalbuterol (Xopenex 1.25MG/ 0.5ML Neb) 1.25 mg Q6R INH 12/06/16 15:00 01/05/17 14:59 12/06/16 15:00 1.25 MG Azithromycin (Zithromax Tab) 250 mg QAM PO 12/07/16 09:00 12/10/16 09:01 12/08/16 08:01 250 MG Piperacillin Sod/ Tazobactam Sod 4.5 gm/Dextrose 120 ml @ 200 mls/hr 1000 ONCE IV 12/07/16 10:00 12/07/16 10:35 DC 12/07/16 10:24 200 MLS/HR Piperacillin Sod/ Tazobactam Sod 3.375 gm/Dextrose 115 ml @ 28.75 mls/ hr Q8H IV 12/07/16 16:00 12/17/16 15:59 12/08/16 09:16 28.75 MLS/HR Phenytoin Sodium (Dilantin Er Cap) 200 mg DAILY PO 12/08/16 09:00 01/05/17 20:59 12/08/16 08:01 200 MG Phenytoin (Dilantin Chew) 50 mg HS PO 12/07/16 21:00 01/06/17 20:59 12/07/16 20:19 50 MG Phenytoin Sodium (Dilantin Er Cap) 100 mg HS PO 12/07/16 21:00 01/06/17 20:59 12/07/16 20:20 100 MG
--- NOTE | 2016-12-08 13:29 | Psychiatric Consultation ---
Consultation Date of Consultation Dec 08, 2016. Identifying Data 66-year-old male with the below mentioned medical conditions, admitted medically following a mechanical fall, small subdural hematoma now resolving. We are consults it to evaluate depression. Information is gathered from the patient, his daughter Chastity, and the electronic medical record, CONSIDERed to be reliable. Chief Complaint "[]". History of Present Illness 66 yo male, admitted medically after a mechanical fall resulting in a small subdural hematoma, now resolved. WE are consulted to evaluate depression. Marcio is alert and cooperative today. He says that he does not see himself as depressed but describes himself as "short and miserable". He is anxious to be discharged. He reports that for months or more he has had low energy and motivation, knowing that there are things he should do but can't get off of the couch to do them. He frequently falls asleep on the couch during the day, and is then up several times during the night. His appetite has been poor and over the last few years has gone from 220 lbs to about 130 per patient report. He denies that he is a chronic worrier, but says that he is worried currently about his peripheral neuropathy impairing his ability to ambulate any distance. His legs tire easily, and going to the mailbox and back is about all he can manage. His daughter Chastity joins us, and reports that the family has observed him to have poor concentration, distractibility, lethargy, and impaired memory. They are also worried about his constant restlessness, and spastic movements. During the interview he is constantly changing positions, attempted to put a lid on a cup without success, and tried to put his elbow on the bedside table but missed it. He denies having any SI, He denies any aud/vis hallucinations. He does say [facility], but then ret[facility] it. He scores 14/21 on GAD7, 2/5 on Mini Cog, and 18 on PHQ 9. Past Psychiatric History Current OP Treatment: no current treatment Prior OP Treatment: no prior treatment Prior Psych Hospitalizations: none Past Medical/Surgical History History of Concussion/Seizure: Yes (at [id number]) (1) COPD (chronic obstructive pulmonary disease) (2) History of seizures (3) Subdural hematoma (4) Diabetes mellitus, type II (5) Tobacco use disorder (6) Peripheral neuropathy Allergies Allergies: Coded Allergies: No Known Allergies (Unverified , 12/06/16) Home Medications Scheduled Atorvastatin (Lipitor), 10 MG PO DAILY Budesonide/Formoterol Fumarate (Symbicort 160/4.5 Inhaler ), 2 PUFFS INH BID Cholecalciferol (Vitamin D3), 1 TAB PO BID Clopidogrel (Plavix), 75 MG PO DAILY Folic Acid (Folvite), 1 MG PO DAILY Ipratropium-Albuterol (Combivent Respimat), 1 PUFFS INH QID Levetiractam (Levetiracetam), 1,000 MG PO BID Phenobarbital (Phenobarbital), 129.6 MG PO BID Phenytoin Sodium (Dilantin), 200 MG PO BID Scheduled PRN Albuterol Sulfate (Proair Respiclick), 2 PUFFS INH TID PRN for SOB/Wheezing Home O2 Therapy (Oxygen), 2 LITERS NA PRN PRN for AMBULATION Family History History of Suicide: No History of Substance Abuse: No Psychiatric History: Yes (mother with anxiety) Alcohol Use Alcohol Use In Past 12 Months: Yes Was a heavy drinker when he was in the [employer] but quit in the 1980s. Now he will only have one beer only occasionally. Smoking Use Smoking Status: Current Every Day Smoker (1.5 ppd. >40 pack years. 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 Relationship History: (3 times) Children: 3 daughters, 2 of whom work here in our hospital Legal History: none Psychological Trauma History: Denies Hx Traumatic Event Review of Systems Constitutional: weakness Eyes: denies: no symptoms, as stated in HPI, eye pain, tearing, itching, redness, discharge, double vision, visual changes, blurred vision, photophobia, other ENT: denies: no symptoms reported, see HPI, ear pain, ear discharge, loss of hearing, tinnitus, nasal pain, nasal congestion, rhinorrhea, epistaxis, sore throat, stidor, throat swelling, mouth pain, mouth swelling, dental pain, gum swelling, other Cardiovascular: denies: no symptoms reported, see HPI, chest pain, chest tightness, chest pressure, diaphoresis, palpitations, syncope, other Respiratory: reports: short of breath Gastrointestinal: denies no symptoms reported, denies see HPI, denies abdominal pain, denies constipation, denies diarrhea, denies nausea, denies vomiting, denies other Genitourinary - Male: denies: no symptoms, see HPI, rash, amenorrhea, penile itching, penile discharge, testicular pain, testicular swelling, impotence, other Musculoskeletal: other (restless, mildly spastic movements) Integumentary: denies no symptoms reported, denies see HPI, denies change in color, denies change in hair/nails, denies dryness, denies lesions, denies lumps , denies rash, denies other Neurologic: reports: other (bilateral lower extremity peripheral neuropathy) Endocrine: denies: no symptoms, as stated in HPI, cold intolerance, heat intolerance, hair changes, goiter, polydipsia, polyuria, skin changes, other Hematologic / Lymphatic: denies: no symptoms, as stated in HPI, abnormal clotting, adenopathy, anemia, easy bleeding, easy bruising, gums bleeding, petechiae, other Examination Physical Examination As per Dr. Martino Vital Signs Vital Signs Past 12 Hours Date Time Temp Pulse Resp B/P (MAP) Pulse Ox O2 Delivery O2 Flow Rate FiO2 12/08/16 08:00 96 Room Air 12/08/16 07:40 37.2 71 20 119/70 (86) 96 Laboratory Results 12/06/16 03:39 Red Blood Count 3.58, Mean Corpuscular Volume 105.0, Mean Corpuscular Hemoglobin 36.3, Mean Corpuscular Hemoglobin Concent 34.6, Mean Platelet Volume 9.8, Neutrophils (%) (Auto) 86.6, Lymphocytes (%) (Auto) 3.5, Monocytes (%) ( Auto) 9.5, Eosinophils (%) (Auto) 0.0, Basophils (%) (Auto) 0.1, Neutrophils # ( Auto) 11.70, Lymphocytes # (Auto) 0.47, Monocytes # (Auto) 1.29, Eosinophils # ( Auto) 0.00, Basophils # (Auto) 0.01 12/06/16 03:39 Test 12/06/16 03:39 12/06/16 03:43 12/06/16 06:05 12/06/16 06:31 White Blood Count 13.51 K/uL (4.8-10.8) Red Blood Count 3.58 M/uL (4.7-6.1) Hemoglobin 13.0 g/dL (14.0-18.0) Hematocrit 37.6 % (42-52) Mean Corpuscular Volume 105.0 fL (80-100) Mean Corpuscular Hemoglobin 36.3 pg (25-34) Mean Corpuscular Hemoglobin Concent 34.6 g/dl (32-36) Platelet Count 94 K/uL (130-400) Mean Platelet Volume 9.8 fL (7.4-10.4) Neutrophils (%) (Auto) 86.6 % Lymphocytes (%) (Auto) 3.5 % Monocytes (%) (Auto) 9.5 % Eosinophils (%) (Auto) 0.0 % Basophils (%) (Auto) 0.1 % Neutrophils # (Auto) 11.70 K/uL (1.4-6.5) Lymphocytes # (Auto) 0.47 K/uL (1.2-3.4) Monocytes # (Auto) 1.29 K/uL (0.11-0.59) Eosinophils # (Auto) 0.00 K/uL (0-0.5) Basophils # (Auto) 0.01 K/uL (0-0.2) RDW Standard Deviation 50.4 fL (36.4-46.3) RDW Coefficient of Variation 13.0 % (11.5-14.5) Immature Granulocyte % (Auto) 0.3 % Immature Granulocyte # (Auto) 0.04 K/uL (0.00-0.02) Dohle Bodies OCCASIONAL Platelet Estimate DECREASED Prothrombin Time 12.2 SECONDS (9.0-12.0) Prothromb Time International Ratio 1.1 (0.9-1.1) Anion Gap 4.0 mmol/L (3-11) Est Creatinine Clear Calc Drug Dose 82.1 ml/min Estimated GFR () 109.0 Estimated GFR (Non- 94.1 BUN/Creatinine Ratio 20.1 (10-20) Estimated Average Glucose 123 mg/dl Hemoglobin A1c 5.9 % (4.5-5.6) Calcium Level 7.8 mg/dl (8.5-10.1) Magnesium Level 2.0 mg/dl (1.8-2.4) Total Bilirubin 0.5 mg/dl (0.2-1) Aspartate Amino Transf (AST/SGOT) 29 U/L (15-37) Alanine Aminotransferase (ALT/SGPT) 36 U/L (12-78) Alkaline Phosphatase 110 U/L (45-117) Troponin I < 0.015 ng/ml (0-0.045) Total Protein 6.4 gm/dl (6.4-8.2) Albumin 3.5 gm/dl (3.4-5.0) Globulin 2.9 gm/dl (2.5-4.0) Albumin/Globulin Ratio 1.2 (0.9-2) Lipase 58 U/L (73-393) Thyroid Stimulating Hormone (TSH) 0.387 uIu/ml (0.300-4.500) Ethyl Alcohol mg/dL < 3.0 mg/dl (0-3) Rapid Plasma Reagin NONREACTIVE (NONREACT) Hepatitis C Antibody Screen NEG (NEG) Lyme Disease IgG Antibody NEG (NEG) Lyme Disease IgM Antibody NEG (NEG) Urine Color YELLOW Urine Appearance CLEAR (CLEAR) Urine pH 6.0 (4.5-7.5) Urine Specific [place] 1.019 (1.000-1.030) Urine Protein 1+ (NEG) Urine Glucose (UA) NEG (NEG) Urine Ketones NEG (NEG) Urine Occult Blood NEG (NEG) Urine Nitrite NEG (NEG) Urine Bilirubin NEG (NEG) Urine Urobilinogen NEG (NEG) Urine Leukocyte Esterase NEG (NEG) Urine WBC (Auto) 1-5 /hpf (0-5) Urine RBC (Auto) 0-4 /hpf (0-4) Urine Hyaline Casts (Auto) 1-5 /lpf (0-5) Urine Epithelial Cells (Auto) 10-20 /lpf (0-5) Urine Bacteria (Auto) 1+ (NEG) Influenza Type A Antigen Neg for Influ A (NEG) Influenza Type B Antigen Neg for Influ B (NEG) Test 12/06/16 06:45 12/06/16 07:08 12/06/16 12:01 12/06/16 12:50 Bedside Lactic Acid Venous 0.98 mmol/L (0.90-1.70) Phenytoin (Dilantin) Level 18.2 mcg/mL (10-20) Vitamin B12 Level 494 pg/mL (211-911) Folate > 24.00 ng/mL (>5.38) Phenobarbital Level 31.1 mcg/mL (15.0-40.0) Date/Time Source Procedure Growth Status 12/06/16 06:41 Blood Blood Culture - Preliminary NO GROWTH TO DATE. Resulted 12/06/16 06:05 Urine , Clean Catch Urine Culture - Final Enterococcus Faecalis Complete Mental Examination During interview pt is: alert and oriented, cooperative Appearance: appropriately dressed, appropriately groomed Eye contact is: good Motor behavior is: other (restlessness with mildly spastic movements) Speech: normal in rate, rhythm & volume Affect: mood congruent, blunted Mood is: other ("short and miserable") Thought process: goal directed Thought content: reality based without delusions Suicidal thought are: denied Homicidal thoughts are: denied Hallucinations: denies auditory, denies visual Cognition: memory grossly intact (intact to 2 of 3 items after several minutes) , attention grossly intact Intelligence estimated to be: average Insight: fair Judgement: fair Impression / Recommendations Impression 66-year-old male hospitalized medically following a mechanical fall with subdural hematoma now resolving. Where requested to evaluate depression. The patient has a positive vegetative profile and admits to being short and irritable in recent months. It's unclear whether this coincides with the start of Keppra. Although he does not see himself as classically depressed, we discussed the benefits of being on an antidepressant including the benefits to sleep, appetite and mood. He is agreeable to a trial of Remeron 15 mg at bedtime. Risks, benefits and alternatives reviewed. He apparently has been on Paxil in the past but his reported it made him more irritable. He is [facility] and so will have the liaison nurse return to facilitate that appointment. The family is wondering about an early dementing process and although he scores poorly on our mini cog, his impairments could be seen in the setting of a pseudodementia secondary to depression. If he continues with memory problems or other cognitive decline, this could be further explored with his neurologist. I'm also not sure what to make of his mildly spastic movements. He initially had some ataxia on no stiff finger testing but with persistence this dissolved. He is able to sit still when asked but clearly when he is attempting a past He has some spasticity that prevents him from accomplishing that task. As per Dr. Peoples's notes, there could be some ataxia secondary to long-term Dilantin use and of course his peripheral neuropathy. He is not acutely suicidal nor psychotic and therefore does not meet criteria for inpatient mental health treatment Inventory Assets Strengths: Good support from family Needs: To quit smoking Risk Factors Assessment Male: Yes : Yes /single/: No Higher / Fall in social status: No Access to guns: Yes Health problems: Yes Mental Health Diagnoses: No Substance use disorders: No Previous attempt: No Previous psychiatric stay: No Hopelessness: No Smoker: Yes Recommendations (1) unspecified depressive disorder 12/08 - Start Remeron 15 mg at bedtime - Will have the liaison nurse to return to facilitate a psychiatric outpatient appointment through the [facility] in [place] - Does not meet criteria for inpatient treatment - Family has concerns for an early dementing process which could be followed over time, and differentiated from a pseudodementia secondary to depression Has been reviewed with Dr. Memo Strauss
--- NOTE | 2016-12-08 14:03 | Neurology Progress Notes ---
Neurology Progress Note Date of Service Dec 08, 2016. Mignon Buckley is a 66 year old male PMH of COPD, tobacco use disorder, h/o seizures and h/o TIA, peripheral neuropathy, seizure disorder past social history EtOH abuse who presents after a mechanical fall at home. He uses a cane to ambulate but misplaced it this week. He was crawling down stairs headfirst when he lost his balance and fell forward onto his left side. He hit his head but denies LOC. denies lightheadedness, seizure, chest pain or SOB. earlier reported he was confused following the fall but he does not feel confused. He did have some CP the day prior to the fall but he states that resolved spontaneously. Denies lightheadedness, confusion, visual changes, slurred speech, CP, abdominal pain, N,V. He is on Plavix for multiple TIAs in the past. [facility] [place] he is an x [employer] and was scheduled for an EMG today with a neurologist due to his ongoing peripheral neuropathy. He states he is not DM but his glucose levels have been high. He smokes 1 1/2 ppd cigarettes does not want to quit, and was an EtOH abuser in the past but that was years ago. Today he just wants to go home. He wants to smoke a cigarette. Earlier today he walked himself to the bathroom and his IV line got caught on the door knob and the nursing staff heard a bid crash. Denies any injury. He does have red socks and has been told to ring or the nurse before getting out of bed. denies CP, SOB , abdominal pain. +weakness, unsteady gait Objective Date Time Temp Pulse Resp B/P (MAP) Pulse Ox O2 Delivery O2 Flow Rate FiO2 12/08/16 08:00 96 Room Air 12/08/16 07:40 37.2 71 20 119/70 (86) 96 12/08/16 00:00 Room Air 12/07/16 23:55 37.2 72 20 97/63 (74) 95 Room Air 12/07/16 16:15 Room Air 12/07/16 14:56 37.0 70 16 132/59 (83) 91 Room Air no new labs Imaging: no new imaging Exam: Physical Exam: Constitutional: appearance thin pale Ears, Nose, Mouth and Throat: mucous membranes moist, no injection and skin normal, eyes normal Cardiovascular: normal S-1 and S-2 and regular rate and rhythm Respiratory: course distant breath sound Musculoskeletal: no peripheral edema Skin: no stigmata of neurocutaneous disease noted and normal and intact Eyes: extraocular muscles intact (EOMI) and pupils equal, round and reactive to light (PERRL) NEUROLOGIC EXAMINATION: Mental status: Alert and interactive Oriented to full date and location Oriented to person Speech fluent with no evidence of aphasia Cranial Nerves smile eye brow raise symmetric Sensory: decreased sensations to cool, vibration from knees down and absent GT proprioception Coordination: finger to nose with no bi pass or tremor, mild chorea type movements Gait/Stance: Posture lying in bed Motor: Negative for pronator drift of out stretched arms with eyes closed. Strength: biceps triceps hand material assistant 5/5 bilaterally hip flex plantar flex ext 5/5 bilaterally Current Inpatient Medications Medications (Trade) Dose Ordered Sig/Torri Route Start Time Stop Time Status Last Admin Dose Admin Acetaminophen (Tylenol Tab) 650 mg Q6H PRN PO 12/06/16 09:45 01/05/17 09:44 12/07/16 17:58 650 MG Ondansetron HCl (Zofran Inj) 4 mg Q6H PRN IV 12/06/16 09:45 01/05/17 09:44 12/07/16 17:58 4 MG Atorvastatin Calcium (Lipitor Tab) 10 mg DAILY PO 12/07/16 09:00 01/06/17 08:59 12/08/16 08:01 10 MG Budesonide/ Formoterol Fumarate (Symbicort 160/ 4.5 Inh) 2 puffs BID INH 12/06/16 21:00 01/05/17 20:59 12/08/16 07:59 2 PUFFS Cholecalciferol (Vitamin D Tab) 1,000 inter.unit BID PO 12/06/16 21:00 01/05/17 20:59 12/08/16 08:01 1,000 INTER.UNIT Folic Acid (Folvite Tab) 1 mg DAILY PO 12/07/16 09:00 01/06/17 08:59 12/08/16 08:00 1 MG Albuterol/ Ipratropium (Combivent Respimat Inh) 1 puffs QID INH 12/06/16 13:00 01/05/17 12:59 12/08/16 13:28 1 PUFFS Levetiracetam (Keppra Tab) 1,000 mg BID PO 12/06/16 12:30 01/05/17 20:59 12/08/16 08:02 1,000 MG Phenobarbital (Phenobarbital Tab) 129.6 mg BID PO 12/06/16 12:30 01/05/17 20:59 12/08/16 08:05 129.6 MG Albuterol (Ventolin Hfa Inhaler) 2 puffs TID PRN INH 12/06/16 10:00 01/05/17 09:59 12/07/16 12:36 2 PUFFS Nicotine (Nicoderm Cq 21MG Patch) 1 patch QAM TD 12/07/16 09:00 01/06/17 08:59 12/08/16 09:16 1 PATCH Miscellaneous (Remove Nicoderm Patch) 1 ea HS N/A 12/07/16 21:00 01/06/17 20:59 12/07/16 20:18 1 EA Ipratropium [place] (Atrovent 0.02% 0.5MG/2.5ML Neb) 0.5 mg Q6R INH 12/06/16 15:00 01/05/17 14:59 12/07/16 09:36 0.5 MG Levalbuterol (Xopenex 1.25MG/ 0.5ML Neb) 1.25 mg Q6R INH 12/06/16 15:00 01/05/17 14:59 12/06/16 15:00 1.25 MG Azithromycin (Zithromax Tab) 250 mg QAM PO 12/07/16 09:00 12/10/16 09:01 12/08/16 08:01 250 MG Gadobutrol (Gadavist) 6 mmol UD PRN IV 12/07/16 09:15 12/11/16 09:14 Piperacillin Sod/ Tazobactam Sod (Consult) 1 ea UD PRN N/A 12/07/16 10:15 01/06/17 10:14 Piperacillin Sod/ Tazobactam Sod 3.375 gm/Dextrose 115 ml @ 28.75 mls/ hr Q8H IV 12/07/16 16:00 12/17/16 15:59 12/08/16 09:16 28.75 MLS/HR Phenytoin Sodium (Dilantin Er Cap) 200 mg DAILY PO 12/08/16 09:00 01/05/17 20:59 12/08/16 08:01 200 MG Phenytoin (Dilantin Chew) 50 mg HS PO 12/07/16 21:00 01/06/17 20:59 12/07/16 20:19 50 MG Phenytoin Sodium (Dilantin Er Cap) 100 mg HS PO 12/07/16 21:00 01/06/17 20:59 12/07/16 20:20 100 MG Impression 66 year old male s/p fall from standing down stairs- SDH Plan 1. peripheral neuropathy- severe [facility]- may want to switch off of dilantin 2. seizure disorder- continue Keppra 1000 mg BID, phenobarbital 32.4 mg BID and dilantin 200 mg bid decreased to 200 mg am 150 mg pm recommend tapering to off by [facility] likely causing some balance issues may help 3. repeat CT head in 24 hours to evaluate for stability of SDH. -done 4. hold plavix 75 mg daily for now restart in 7 days 5. PT/OT for discharge needs- may need walker to avoid further falls- concern with home due to bathroom and bedrooms on 2nd floor-high risk for fall. 6. neurology in [facility] consider taper of Dilantin which can cause peripheral neuropathy 7. MRI still trace of SDH present- no further imaging 9. dilantin level in [address] Hameed attempted to call to discuss patient but there was no answer 11. should consider [facility] at the [facility] 12. there is a mild chorea movement which the [facility] may be aware. If not may need to have work up for [place] chorea. I have seen and discussed above patient with Dr Nico Carlton, neurology I have seen this man and reviewd the above recommendations with Marina Skelton Agree with suggestion to taper off dilantin and go with double therapy for seizures and agree the falls are multifactorial with peripheral sensory polyneuropathy, perhaps some cerebellar toxicity from the chronic dilantin and wonder about the role of the choreiform movements as well He is apparently known to the [facility] team in [place] and should be seen by them after he is discharged for further care and medication management Cause of chorea not known he denies family history and dilantin role in causing this is unlikely He may need outpatient genetic testing for chorea but again [facility] the [facility] as the issue may well have already been addressed IF he is felt to be safe to discharge then neurology has no objections and we will not be following him.. NO need for rescan of the sdh which is minimal and restart the plavix in 7 days Nico Carlton MD
[2016-12-08] MEDS: ALBUTEROL HFA 8 GM INHALER INH PRN (14:30)
[2016-12-08 15:04] VITALS: BP 109/66; PULSE 74; TEMP 37.2; O2SAT 90
--- NOTE | 2016-12-08 18:35 | Progress Note ---
Subjective Date of Service: Dec 08, 2016. Subjective Pt evaluation today including: conversation w/ patient, physical exam, lab review, review of studies, review of inpatient medication list Saw/examined the patient in room 255 has involuntary movements working with PT/OT Eager to get out of the hospital Daughter at bedside - explained about rehab - both patient and family agreeable Problem List Medical Problems: (1) Fall Status: Acute (2) Fever Status: Acute (3) Hypoxia Status: Acute (4) Lobar pneumonia Status: Acute (5) Subdural hematoma Status: Acute Review of Systems Constitutional: + weakness, No fever, No chills Respiratory: No cough, No sputum, No shortness of breath Neurologic: + weakness, + balance problems, + problem reported (movements) Heme: + abnormal bleeding/bruising Medications Current Inpatient Medications Medications (Trade) Dose Ordered Sig/Torri Route Start Time Stop Time Status Last Admin Dose Admin Acetaminophen (Tylenol Tab) 650 mg Q6H PRN PO 12/06/16 09:45 01/05/17 09:44 12/07/16 17:58 650 MG Ondansetron HCl (Zofran Inj) 4 mg Q6H PRN IV 12/06/16 09:45 01/05/17 09:44 12/07/16 17:58 4 MG Atorvastatin Calcium (Lipitor Tab) 10 mg DAILY PO 12/07/16 09:00 01/06/17 08:59 12/08/16 08:01 10 MG Budesonide/ Formoterol Fumarate (Symbicort 160/ 4.5 Inh) 2 puffs BID INH 12/06/16 21:00 01/05/17 20:59 12/08/16 07:59 2 PUFFS Cholecalciferol (Vitamin D Tab) 1,000 inter.unit BID PO 12/06/16 21:00 01/05/17 20:59 12/08/16 08:01 1,000 INTER.UNIT Folic Acid (Folvite Tab) 1 mg DAILY PO 12/07/16 09:00 01/06/17 08:59 12/08/16 08:00 1 MG Albuterol/ Ipratropium (Combivent Respimat Inh) 1 puffs QID INH 12/06/16 13:00 01/05/17 12:59 12/08/16 17:20 1 PUFFS Levetiracetam (Keppra Tab) 1,000 mg BID PO 12/06/16 12:30 01/05/17 20:59 12/08/16 08:02 1,000 MG Phenobarbital (Phenobarbital Tab) 129.6 mg BID PO 12/06/16 12:30 01/05/17 20:59 12/08/16 08:05 129.6 MG Albuterol (Ventolin Hfa Inhaler) 2 puffs TID PRN INH 12/06/16 10:00 01/05/17 09:59 12/08/16 14:30 2 PUFFS Nicotine (Nicoderm Cq 21MG Patch) 1 patch QAM TD 12/07/16 09:00 01/06/17 08:59 12/08/16 09:16 1 PATCH Miscellaneous (Remove Nicoderm Patch) 1 ea HS N/A 12/07/16 21:00 01/06/17 20:59 12/07/16 20:18 1 EA Ipratropium [place] (Atrovent 0.02% 0.5MG/2.5ML Neb) 0.5 mg Q6R INH 12/06/16 15:00 01/05/17 14:59 12/07/16 09:36 0.5 MG Levalbuterol (Xopenex 1.25MG/ 0.5ML Neb) 1.25 mg Q6R INH 12/06/16 15:00 01/05/17 14:59 12/06/16 15:00 1.25 MG Azithromycin (Zithromax Tab) 250 mg QAM PO 12/07/16 09:00 12/10/16 09:01 12/08/16 08:01 250 MG Gadobutrol (Gadavist) 6 mmol UD PRN IV 12/07/16 09:15 12/11/16 09:14 Phenytoin Sodium (Dilantin Er Cap) 200 mg DAILY PO 12/08/16 09:00 01/05/17 20:59 12/08/16 08:01 200 MG Phenytoin (Dilantin Chew) 50 mg HS PO 12/07/16 21:00 01/06/17 20:59 12/07/16 20:19 50 MG Phenytoin Sodium (Dilantin Er Cap) 100 mg HS PO 12/07/16 21:00 01/06/17 20:59 12/07/16 20:20 100 MG Amoxicillin (Amoxil Cap) 500 mg BID PO 12/08/16 21:00 12/13/16 20:59 Objective Vital Signs Date Time Temp Pulse Resp B/P (MAP) Pulse Ox O2 Delivery O2 Flow Rate FiO2 12/08/16 16:00 Room Air 12/08/16 15:04 37.2 74 20 109/66 (80) 90 12/08/16 08:00 96 Room Air 12/08/16 07:40 37.2 71 20 119/70 (86) 96 12/08/16 00:00 Room Air 12/07/16 23:55 37.2 72 20 97/63 (74) 95 Room Air Physical Exam General Appearance: no apparent distress, + thin Respiratory/Chest: no respiratory distress, no accessory muscle use, + decreased breath sounds Cardiovascular: regular rate, rhythm, no edema, no murmur Abdomen: normal bowel sounds, non tender, soft Neurologic/Psychiatric: + pertinent finding (involuntary jerky movements of the extremities) Assessment and Plan This is a 66yo M with a PMH of COPD, tobacco use disorder, h/o seizures and h/o TIA who presents after a mechanical fall at home. Patient normally ambulates with a cane but misplaced it this week. Subdural hematoma: 12/08 hold Plavix for one week, then restart no need to repeat imaging PT/OT outpatient chorea genetic testing will need placement smoking cessation discussed - counseled - patient will attempt - will write for nicotine patches attempting to wean dilantin; continue Keppra and phenobarbital -S/p mechanical fall onto L side today -Presence of bruise under L eye, small sub-conjunctival hemorrhage of L eye -Initial CT head "Findings concerning for trace acute subdural hematoma along the frontal convexity" -Consulted neuro, who reviewed case and ordered a repeat CT head with showed: -"Slight increased density along the left tentorium and a small focus of extra-axial increased density posterior to the left parietal lobe consistent with a trace left-sided subdural hematoma" -Currently asymptomatic; monitor closely on tele -Repeat CT head in 12 hours -Appreciate further recommendations from neuro -Hold Plavix - Repeat CT of the Head-Hemorrhage cleared -MRI-shows very minimal SAH -Pt is totally asymptomatic Mechanical fall: H/O Ambulatory Dysfunction with recurrent falls -Likely 2/2 peripheral neuropathy, deconditioning -Work up to determine etiology of neuropathy -PT/OT evals Mild COPD Exacerbation: -Leukocytosis of 13.5, increased sputum production, chills -CXR without evidence of PNA -Continue home inhalers -Added nebs and PO azithromycin -PRN O2 per protocol -No acute issue Tobacco Use Disorder Has had a long discussion Will not quit smoking Will not take any Nicotine,Meds and or Gum Peripheral neuropathy: -H/o DM II without medical management -Hgb a1c pending -5.9 -B12, folate, TSH, RPR ordered -normal -Cause could be DM II and Phenytoin and or Idiopathic H/o seizures: -Stable -Continue home regimen of Dilantin, phenobarbital, Keppra -Dilantin and Phenobarbital levels are therapeutic -Keppra level pending H/o TIA: -No current symptoms suggestive of TIA, CVA -Plavix held 2/2 subdural hematoma DM II: -No medical management in past, per patien t -Hgb a1c pending DVT Ppx: SCDs Code status: FULL PCP: ALINA Hernandez ([facility]) Dispo: Plan to return home once medically stable
[2016-12-08] MEDS: ACETAMINOPHEN 325 MG TAB PO PRN (18:42)
[2016-12-08] MEDS: ONDANSETRON INJ 2 MG/ML 2 ML VIAL IV PRN (18:42)
[2016-12-08] MEDS: PHENYTOIN 50 MG CHEW PO SCH (20:19)
[2016-12-08] MEDS: AMOXICILLIN 500 MG CAP PO SCH (20:29)
[2016-12-08 23:54] VITALS: BP 112/70; PULSE 78; TEMP 36.8; O2SAT 90
[2016-12-09] MEDS: LEVALBUTEROL 1.25MG/0.5ML NEB INH SCH ×4 (02:22→18:55)
[2016-12-09] MEDS: IPRATROPIUM BROMIDE NEB SOLN 0.02% 2.5 ML VIAL INH SCH ×4 (02:22→18:54)
[2016-12-09 07:13] LABS: HEMATOCRIT 33.7 % (42-52); MEAN CELL VOLUME 104.3 fL (80-100); MEAN CORPUSCULAR HEMOGLOBIN 36.2 pg (25-34); MEAN CORPUSCULAR HGB CONC 34.7 g/dl (32-36); MEAN PLATELET VOLUME 9.5 fL (7.4-10.4); PLATELET COUNT 104 K/uL (130-400); RED BLOOD COUNT 3.23 M/uL (4.7-6.1); WHITE BLOOD COUNT 6.53 K/uL (4.8-10.8)
[2016-12-09 07:38] VITALS: BP 114/49; PULSE 69; TEMP 37; O2SAT 90
[2016-12-09 07:46] LABS: BUN/CREATININE RATIO 25.1 (10-20); CALCIUM 8.3 mg/dl (8.5-10.1); CREATININE 0.58 mg/dl (0.60-1.40); MAGNESIUM 2.1 mg/dl (1.8-2.4); POTASSIUM 3.8 mmol/L (3.5-5.1)
[2016-12-09] MEDS: BOOST GLUCOSE CONTROL PO SCH ×2 (07:53→17:50)
[2016-12-09] MEDS: IPRATROPIUM BROMIDE/ALBUTEROL respimat INH INH SCH ×4 (07:56→21:07)
[2016-12-09] MEDS: ATORVASTATIN 10 MG TAB PO SCH (07:57)
[2016-12-09] MEDS: LEVETIRACETAM 500 MG TAB PO SCH ×2 (07:58→21:10)
[2016-12-09] MEDS: CHOLECALCIFEROL 1000 INTER.UNIT TAB PO SCH ×2 (07:58→21:08)
[2016-12-09] MEDS: AMOXICILLIN 500 MG CAP PO SCH ×2 (07:59→21:08)
[2016-12-09] MEDS: PHENYTOIN SODIUM ER 100 MG CAP PO SCH ×2 (07:59→21:09)
[2016-12-09 08:00] VITALS: O2SAT 90
[2016-12-09] MEDS: AZITHROMYCIN 250 MG TAB PO SCH (08:00)
[2016-12-09] MEDS: PHENOBARBITAL 32.4 MG TAB PO SCH ×2 (08:02→21:14)
[2016-12-09] MEDS: NICOTINE 21 MG/24 HR TDSY TD SCH (08:02)
[2016-12-09] MEDS: BUDESONIDE/FORMOTEROL FUMARATE 160/4.5 60 PUFFS/INHALER INH SCH ×2 (08:09→21:00)
[2016-12-09] MEDS: ACETAMINOPHEN 325 MG TAB PO PRN (10:09)
[2016-12-09] MEDS ORDERED: DOCUSATE SODIUM 100 MG CAP PO ONE (13:30)
[2016-12-09 14:48] VITALS: BP 102/68; PULSE 78; TEMP 36.8; O2SAT 92
[2016-12-09 16:00] VITALS: O2SAT 92
--- NOTE | 2016-12-09 16:48 | Progress Note ---
Subjective Date of Service: Dec 09, 2016. Subjective Pt evaluation today including: conversation w/ patient, physical exam, lab review, review of studies, review of inpatient medication list Saw/examined the patient in room 255 No problems/issues to note today; eager to be discharged home Problem List Medical Problems: (1) Fall Status: Acute (2) Fever Status: Acute (3) Hypoxia Status: Acute (4) Lobar pneumonia Status: Acute (5) Subdural hematoma Status: Acute Review of Systems Constitutional: No fever, No chills Respiratory: No shortness of breath Cardiac: No chest pain Abdomen: No pain, No nausea, No vomiting, No diarrhea Neurologic: + balance problems Medications Current Inpatient Medications Medications (Trade) Dose Ordered Sig/Torri Route Start Time Stop Time Status Last Admin Dose Admin Acetaminophen (Tylenol Tab) 650 mg Q6H PRN PO 12/06/16 09:45 01/05/17 09:44 12/09/16 10:09 650 MG Ondansetron HCl (Zofran Inj) 4 mg Q6H PRN IV 12/06/16 09:45 01/05/17 09:44 12/08/16 18:42 4 MG Atorvastatin Calcium (Lipitor Tab) 10 mg DAILY PO 12/07/16 09:00 01/06/17 08:59 12/09/16 07:57 10 MG Budesonide/ Formoterol Fumarate (Symbicort 160/ 4.5 Inh) 2 puffs BID INH 12/06/16 21:00 01/05/17 20:59 12/08/16 07:59 2 PUFFS Cholecalciferol (Vitamin D Tab) 1,000 inter.unit BID PO 12/06/16 21:00 01/05/17 20:59 12/09/16 07:58 1,000 INTER.UNIT Folic Acid (Folvite Tab) 1 mg DAILY PO 12/07/16 09:00 01/06/17 08:59 12/09/16 07:57 1 MG Albuterol/ Ipratropium (Combivent Respimat Inh) 1 puffs QID INH 12/06/16 13:00 01/05/17 12:59 12/09/16 13:38 1 PUFFS Levetiracetam (Keppra Tab) 1,000 mg BID PO 12/06/16 12:30 01/05/17 20:59 12/09/16 07:58 1,000 MG Phenobarbital (Phenobarbital Tab) 129.6 mg BID PO 12/06/16 12:30 01/05/17 20:59 12/09/16 08:02 129.6 MG Albuterol (Ventolin Hfa Inhaler) 2 puffs TID PRN INH 12/06/16 10:00 01/05/17 09:59 12/08/16 14:30 2 PUFFS Nicotine (Nicoderm Cq 21MG Patch) 1 patch QAM TD 12/07/16 09:00 01/06/17 08:59 12/09/16 08:02 1 PATCH Miscellaneous (Remove Nicoderm Patch) 1 ea HS N/A 12/07/16 21:00 01/06/17 20:59 12/07/16 20:18 1 EA Ipratropium [place] (Atrovent 0.02% 0.5MG/2.5ML Neb) 0.5 mg Q6R INH 12/06/16 15:00 01/05/17 14:59 12/07/16 09:36 0.5 MG Levalbuterol (Xopenex 1.25MG/ 0.5ML Neb) 1.25 mg Q6R INH 12/06/16 15:00 01/05/17 14:59 12/06/16 15:00 1.25 MG Azithromycin (Zithromax Tab) 250 mg QAM PO 12/07/16 09:00 12/10/16 09:01 12/09/16 08:00 250 MG Gadobutrol (Gadavist) 6 mmol UD PRN IV 12/07/16 09:15 12/11/16 09:14 Phenytoin Sodium (Dilantin Er Cap) 200 mg DAILY PO 12/08/16 09:00 01/05/17 20:59 12/09/16 07:59 200 MG Phenytoin (Dilantin Chew) 50 mg HS PO 12/07/16 21:00 01/06/17 20:59 12/08/16 20:19 50 MG Phenytoin Sodium (Dilantin Er Cap) 100 mg HS PO 12/07/16 21:00 01/06/17 20:59 12/08/16 20:19 100 MG Amoxicillin (Amoxil Cap) 500 mg BID PO 12/08/16 21:00 12/13/16 20:59 12/09/16 07:59 500 MG Enteral Nutritional Formula (Boost Glucose Control) 1 can BIDM PO 12/09/16 08:00 01/08/17 07:59 12/09/16 07:53 1 CAN Docusate Sodium (coLACE CAP) 100 mg BID PO 12/09/16 21:00 01/08/17 20:59 Mirtazapine (Remeron Tab) 15 mg HS PO 12/09/16 21:00 01/08/17 20:59 Objective Vital Signs Date Time Temp Pulse Resp B/P (MAP) Pulse Ox O2 Delivery O2 Flow Rate FiO2 12/09/16 14:48 36.8 78 18 102/68 (79) 92 12/09/16 08:00 90 Room Air 12/09/16 07:38 37.0 69 20 114/49 (70) 90 12/09/16 00:00 Room Air 12/08/16 23:54 36.8 78 20 112/70 (84) 90 Room Air 12/08/16 20:00 Room Air Physical Exam General Appearance: no apparent distress, + thin, + pertinent finding ( involuntary movements intermittently) Respiratory/Chest: no respiratory distress, no accessory muscle use Cardiovascular: regular rate, rhythm, no murmur Extremities: normal inspection, no pedal edema Laboratory Results Last 24 Hours Test 12/09/16 06:55 White Blood Count 6.53 K/uL Red Blood Count 3.23 M/uL Hemoglobin 11.7 g/dL Hematocrit 33.7 % Mean Corpuscular Volume 104.3 fL Mean Corpuscular Hemoglobin 36.2 pg Mean Corpuscular Hemoglobin Concent 34.7 g/dl RDW Standard Deviation 47.9 fL RDW Coefficient of Variation 12.5 % Platelet Count 104 K/uL Mean Platelet Volume 9.5 fL Sodium Level 137 mmol/L Potassium Level 3.8 mmol/L Chloride Level 104 mmol/L Carbon Dioxide Level 27 mmol/L Anion Gap 6.0 mmol/L Blood Urea Nitrogen 15 mg/dl Creatinine 0.58 mg/dl Est Creatinine Clear Calc Drug Dose 109.9 ml/min Estimated GFR () 123.1 Estimated GFR (Non- 106.2 BUN/Creatinine Ratio 25.1 Random Glucose 116 mg/dl Calcium Level 8.3 mg/dl Magnesium Level 2.1 mg/dl Assessment and Plan This is a 66yo M with a PMH of COPD, tobacco use disorder, h/o seizures and h/o TIA who presents after a mechanical fall at home. Patient normally ambulates with a cane but misplaced it this week. Subdural hematoma: 12/09 continue PT/OT hold Plavix x1week d/c to [facility] outpatient chorea testing at [place] 12/08 hold Plavix for one week, then restart no need to repeat imaging PT/OT outpatient chorea genetic testing will need placement smoking cessation discussed - counseled - patient will attempt - will write for nicotine patches attempting to wean dilantin; continue Keppra and phenobarbital -S/p mechanical fall onto L side today -Presence of bruise under L eye, small sub-conjunctival hemorrhage of L eye -Initial CT head "Findings concerning for trace acute subdural hematoma along the frontal convexity" -Consulted neuro, who reviewed case and ordered a repeat CT head with showed: -"Slight increased density along the left tentorium and a small focus of extra-axial increased density posterior to the left parietal lobe consistent with a trace left-sided subdural hematoma" -Currently asymptomatic; monitor closely on tele -Repeat CT head in 12 hours -Appreciate further recommendations from neuro -Hold Plavix - Repeat CT of the Head-Hemorrhage cleared -MRI-shows very minimal SAH -Pt is totally asymptomatic Mechanical fall: H/O Ambulatory Dysfunction with recurrent falls -Likely 2/2 peripheral neuropathy, deconditioning -Work up to determine etiology of neuropathy -PT/OT evals Mild COPD Exacerbation: -Leukocytosis of 13.5, increased sputum production, chills -CXR without evidence of PNA -Continue home inhalers -Added nebs and PO azithromycin -PRN O2 per protocol -No acute issue Tobacco Use Disorder Has had a long discussion Will not quit smoking Will not take any Nicotine,Meds and or Gum Peripheral neuropathy: -H/o DM II without medical management -Hgb a1c pending -5.9 -B12, folate, TSH, RPR ordered -normal -Cause could be DM II and Phenytoin and or Idiopathic H/o seizures: -Stable -Continue home regimen of Dilantin, phenobarbital, Keppra -Dilantin and Phenobarbital levels are therapeutic -Keppra level pending H/o TIA: -No current symptoms suggestive of TIA, CVA -Plavix held 2/2 subdural hematoma DM II: -No medical management in past, per patien t -Hgb a1c pending DVT Ppx: SCDs Code status: FULL PCP: ALINA Hernandez ([facility]) Dispo: Plan to return home once medically stable
[2016-12-09] MEDS ORDERED: RANITIDINE HCL 150 MG TAB PO ONE (17:30)
--- NOTE | 2016-12-09 17:36 | PROGRESS NOTE ---
DATE: 12/09/2016 I saw Marcio today having just picked up his case from Dr. Hameed yesterday. The history was reviewed with his daughter last night by telephone. He has a longstanding seizure disorder, was on Dilantin and phenobarbital starting probably in the mid 70s and continued to have occasional seizures, the most recent being about 7-8 months ago at which point Keppra was added to the regimen. 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 All of this is coupled to produce a propensity for falling and he is now here awaiting hopefully some rehabilitation placement for a week or so and have some gait training and stimulation to use his walker, which he apparently was refusing to do so. He is known to the [place] system, sees a neurologist in [place] but has not seen her for probably several months at least and also has a primary care in the [place] system. In light of this, I do think local neurology is going to get involved, but if we were I would do the following: Try to establish whether his insurance will pay for Irion's mutation. I really doubt this is Irion's disease as according to the daughter, this family has large reunions every year and absolutely no one has ever had a similar movement disorder. However, this would at least take the Irion's possibility off the table and it is possible even if he is positive that he would be a first mutation. The issue of false paternity unfortunately also arises in this situation, but if the gene is positive that can be handled later. The other recommendation made by Dr. Hameed i.e., taper off the Dilantin and I believe his neurologist in [place] would suggest that we do that as well. Dilantin has rarely been associated with induction of choreoathetoid movements. This usually occurs early on in treatment and is reversible once it stopped and frankly I have only ever seen one case of this and this was over 30 years ago, but it would be something that we could do to see if these movements would spontaneously resolve. Otherwise, he is probably looking at some form of treatment and a further workup at the [place] system for potential causes of chorea if indeed Irion's mutation is negative. I would continue him on his current medications of Keppra and phenobarbital. The odds of getting this man off phenobarbital after 40+ years of treatment is about zero as he probably would have persistent problems with insomnia and this is already is an issue now. For now then, we are waiting rehabilitation placement. [facility]. If I were to taper his Dilantin, I would do so by 100 mg every 2 weeks and he has already been dropped by 50 mg so in a week, I would start with 100 mg decrements and go from there. I will check with him tomorrow as I assume he is still going to be here. HORTENCIAD
[2016-12-09] MEDS: MIRTAZAPINE TAB 15 MG TAB PO SCH (21:08)
[2016-12-09] MEDS: DOCUSATE SODIUM 100 MG CAP PO SCH (21:10)
[2016-12-09] MEDS: PHENYTOIN 50 MG CHEW PO SCH (21:10)
[2016-12-09 23:16] VITALS: BP 120/68; PULSE 81; TEMP 36.8; O2SAT 91
[2016-12-10] MEDS: LEVALBUTEROL 1.25MG/0.5ML NEB INH SCH ×4 (02:06→18:58)
[2016-12-10] MEDS: IPRATROPIUM BROMIDE NEB SOLN 0.02% 2.5 ML VIAL INH SCH ×4 (02:06→18:58)
[2016-12-10 07:21] VITALS: BP 141/72; PULSE 90; TEMP 36.8; O2SAT 94
[2016-12-10 08:30] VITALS: O2SAT 94
[2016-12-10] MEDS: BUDESONIDE/FORMOTEROL FUMARATE 160/4.5 60 PUFFS/INHALER INH SCH ×2 (09:00→20:28)
[2016-12-10] MEDS: IPRATROPIUM BROMIDE/ALBUTEROL respimat INH INH SCH ×4 (09:14→20:30)
[2016-12-10] MEDS: PHENYTOIN SODIUM ER 100 MG CAP PO SCH ×3 (09:15→20:34)
[2016-12-10] MEDS: AMOXICILLIN 500 MG CAP PO SCH ×2 (09:15→20:33)
[2016-12-10] MEDS: ATORVASTATIN 10 MG TAB PO SCH (09:15)
[2016-12-10] MEDS: CHOLECALCIFEROL 1000 INTER.UNIT TAB PO SCH ×2 (09:15→20:34)
[2016-12-10] MEDS: DOCUSATE SODIUM 100 MG CAP PO SCH ×2 (09:16→20:24)
[2016-12-10] MEDS: LEVETIRACETAM 500 MG TAB PO SCH ×2 (09:16→20:33)
[2016-12-10] MEDS: AZITHROMYCIN 250 MG TAB PO SCH (09:16)
[2016-12-10] MEDS: BOOST GLUCOSE CONTROL PO SCH ×2 (09:18→16:32)
[2016-12-10] MEDS: NICOTINE 21 MG/24 HR TDSY TD SCH (09:19)
[2016-12-10] MEDS: PHENOBARBITAL 32.4 MG TAB PO SCH ×2 (09:21→20:39)
[2016-12-10] MEDS: ACETAMINOPHEN 325 MG TAB PO PRN ×2 (09:22→16:33)
[2016-12-10 14:47] VITALS: BP 128/78; PULSE 64; TEMP 36.6; O2SAT 94
--- NOTE | 2016-12-10 15:15 | Progress Note ---
Subjective Date of Service: Dec 10, 2016. Subjective Pt evaluation today including: conversation w/ patient, physical exam, lab review, review of studies, review of inpatient medication list Saw/examined the patient in room 255 No problems/issues to note today; he feels ready to leave the hospital; reconsidering rehab, wants to go home, but knows the risks He denies any other symptoms Problem List Medical Problems: (1) Fall Status: Acute (2) Fever Status: Acute (3) Hypoxia Status: Acute (4) Lobar pneumonia Status: Acute (5) Subdural hematoma Status: Acute Review of Systems Constitutional: No fever, No chills Respiratory: No shortness of breath Cardiac: No chest pain Neurologic: + weakness, + balance problems, No memory loss, No paralysis, No numbness/tingling, No vertigo Medications Current Inpatient Medications Medications (Trade) Dose Ordered Sig/Torri Route Start Time Stop Time Status Last Admin Dose Admin Acetaminophen (Tylenol Tab) 650 mg Q6H PRN PO 12/06/16 09:45 01/05/17 09:44 12/10/16 09:22 650 MG Ondansetron HCl (Zofran Inj) 4 mg Q6H PRN IV 12/06/16 09:45 01/05/17 09:44 12/08/16 18:42 4 MG Atorvastatin Calcium (Lipitor Tab) 10 mg DAILY PO 12/07/16 09:00 01/06/17 08:59 12/10/16 09:15 10 MG Budesonide/ Formoterol Fumarate (Symbicort 160/ 4.5 Inh) 2 puffs BID INH 12/06/16 21:00 01/05/17 20:59 12/08/16 07:59 2 PUFFS Cholecalciferol (Vitamin D Tab) 1,000 inter.unit BID PO 12/06/16 21:00 01/05/17 20:59 12/10/16 09:15 1,000 INTER.UNIT Folic Acid (Folvite Tab) 1 mg DAILY PO 12/07/16 09:00 01/06/17 08:59 12/10/16 09:15 1 MG Albuterol/ Ipratropium (Combivent Respimat Inh) 1 puffs QID INH 12/06/16 13:00 01/05/17 12:59 12/10/16 13:31 1 PUFFS Levetiracetam (Keppra Tab) 1,000 mg BID PO 12/06/16 12:30 01/05/17 20:59 12/10/16 09:16 1,000 MG Phenobarbital (Phenobarbital Tab) 129.6 mg BID PO 12/06/16 12:30 01/05/17 20:59 12/10/16 09:21 129.6 MG Albuterol (Ventolin Hfa Inhaler) 2 puffs TID PRN INH 12/06/16 10:00 01/05/17 09:59 12/08/16 14:30 2 PUFFS Nicotine (Nicoderm Cq 21MG Patch) 1 patch QAM TD 12/07/16 09:00 01/06/17 08:59 12/10/16 09:19 1 PATCH Miscellaneous (Remove Nicoderm Patch) 1 ea HS N/A 12/07/16 21:00 01/06/17 20:59 12/07/16 20:18 1 EA Ipratropium [place] (Atrovent 0.02% 0.5MG/2.5ML Neb) 0.5 mg Q6R INH 12/06/16 15:00 01/05/17 14:59 12/07/16 09:36 0.5 MG Levalbuterol (Xopenex 1.25MG/ 0.5ML Neb) 1.25 mg Q6R INH 12/06/16 15:00 01/05/17 14:59 12/06/16 15:00 1.25 MG Gadobutrol (Gadavist) 6 mmol UD PRN IV 12/07/16 09:15 12/11/16 09:14 Phenytoin Sodium (Dilantin Er Cap) 200 mg DAILY PO 12/08/16 09:00 01/05/17 20:59 12/10/16 09:40 200 MG Phenytoin Sodium (Dilantin Er Cap) 100 mg HS PO 12/07/16 21:00 01/06/17 20:59 12/09/16 21:09 100 MG Amoxicillin (Amoxil Cap) 500 mg BID PO 12/08/16 21:00 12/13/16 20:59 12/10/16 09:15 500 MG Enteral Nutritional Formula (Boost Glucose Control) 1 can BIDM PO 12/09/16 08:00 01/08/17 07:59 12/10/16 09:18 1 CAN Docusate Sodium (coLACE CAP) 100 mg BID PO 12/09/16 21:00 01/08/17 20:59 12/10/16 09:16 100 MG Mirtazapine (Remeron Tab) 15 mg HS PO 12/09/16 21:00 01/08/17 20:59 12/09/16 21:08 15 MG Objective Vital Signs Date Time Temp Pulse Resp B/P (MAP) Pulse Ox O2 Delivery O2 Flow Rate FiO2 12/10/16 14:47 36.6 64 18 128/78 (95) 94 12/10/16 08:30 94 Room Air 12/10/16 07:21 36.8 90 20 141/72 (95) 94 12/10/16 00:00 Room Air 12/09/16 23:16 36.8 81 20 120/68 (85) 91 Room Air 12/09/16 20:00 Room Air 12/09/16 16:00 92 Room Air Physical Exam General Appearance: no apparent distress, + thin (tall), + pertinent finding ( involuntary movements of extremities) Respiratory/Chest: chest non-tender, no respiratory distress, no accessory muscle use, + wheezing Cardiovascular: regular rate, rhythm, no edema, no murmur Assessment and Plan This is a 66yo M with a PMH of COPD, tobacco use disorder, h/o seizures and h/o TIA who presents after a mechanical fall at home. Patient normally ambulates with a cane but misplaced it this week. Subdural hematoma: 12/10 continue PT/OT patient agreeable to rehab accepted to [facility] - awaiting bed availability outpatient [facility]a testing restart Plavix within the week taper Dilantin as outpatient 12/09 continue PT/OT hold Plavix x1week d/c to [facility] outpatient chorea testing at [place] 12/08 hold Plavix for one week, then restart no need to repeat imaging PT/OT outpatient chorea genetic testing will need placement smoking cessation discussed - counseled - patient will attempt - will write for nicotine patches attempting to wean dilantin; continue Keppra and phenobarbital -S/p mechanical fall onto L side today -Presence of bruise under L eye, small sub-conjunctival hemorrhage of L eye -Initial CT head "Findings concerning for trace acute subdural hematoma along the frontal convexity" -Consulted neuro, who reviewed case and ordered a repeat CT head with showed: -"Slight increased density along the left tentorium and a small focus of extra-axial increased density posterior to the left parietal lobe consistent with a trace left-sided subdural hematoma" -Currently asymptomatic; monitor closely on tele -Repeat CT head in 12 hours -Appreciate further recommendations from neuro -Hold Plavix - Repeat CT of the Head-Hemorrhage cleared -MRI-shows very minimal SAH -Pt is totally asymptomatic Mechanical fall: H/O Ambulatory Dysfunction with recurrent falls -Likely 2/2 peripheral neuropathy, deconditioning -Work up to determine etiology of neuropathy -PT/OT evals Mild COPD Exacerbation: -Leukocytosis of 13.5, increased sputum production, chills -CXR without evidence of PNA -Continue home inhalers -Added nebs and PO azithromycin -PRN O2 per protocol -No acute issue Tobacco Use Disorder Has had a long discussion Will not quit smoking Will not take any Nicotine,Meds and or Gum Peripheral neuropathy: -H/o DM II without medical management -Hgb a1c pending -5.9 -B12, folate, TSH, RPR ordered -normal -Cause could be DM II and Phenytoin and or Idiopathic H/o seizures: -Stable -Continue home regimen of Dilantin, phenobarbital, Keppra -Dilantin and Phenobarbital levels are therapeutic -Keppra level pending H/o TIA: -No current symptoms suggestive of TIA, CVA -Plavix held 2/2 subdural hematoma DM II: -No medical management in past, per patien t -Hgb a1c pending DVT Ppx: SCDs Code status: FULL PCP: ALINA Hernandez ([facility]) Dispo: Plan to return home once medically stable
[2016-12-10 16:00] VITALS: O2SAT 94
--- NOTE | 2016-12-10 17:00 | PROGRESS NOTE ---
DATE: 12/10/2016 I saw Marcio today. He was talking with the mental health worker. He still has a choreiform activity obviously, but otherwise seems fairly stable and willing to go to [facility] and is simply waiting for clearance. He is going to need some time for treatment for his gait instability, the use of assistive devices and hopefully, he will be able to go home and not have any more falls. I cut the Dilantin by another 50 mg. He is now taking 200 in the morning and 100 at night and after discharge, I suspect this will be tapered further. My suggestion would be to drop it by 100 mg every 2 weeks, but again this is going to be up to his neurologist, who assumes his care at the [place] system. I will continue the Keppra and phenobarbital and at some point in the future, the question of getting Hocking's disease mutation test done will have to be raised. 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 These things are again downstream from here, may be addressed by the psychiatrist at the [place] system or the neurologist, who is going to be assuming his care in followup of neuropathy and his seizure disorder. We will continue see him while he is here in the hospital, but I have no immediate plans to see him in our clinic unless the family would desire me to do so. [place]
[2016-12-10] MEDS: MIRTAZAPINE TAB 15 MG TAB PO SCH (20:34)
[2016-12-11] VITALS: BP 128/75; PULSE 74; TEMP 36.7; O2SAT 92
[2016-12-11] MEDS: LEVALBUTEROL 1.25MG/0.5ML NEB INH SCH ×2 (02:08→07:10)
[2016-12-11] MEDS: IPRATROPIUM BROMIDE NEB SOLN 0.02% 2.5 ML VIAL INH SCH ×2 (02:08→07:10)
[2016-12-11 07:19] VITALS: BP 124/79; PULSE 71; TEMP 37.1; O2SAT 92
[2016-12-11] MEDS: BOOST GLUCOSE CONTROL PO SCH (08:32)
[2016-12-11] MEDS: DOCUSATE SODIUM 100 MG CAP PO SCH (08:33)
[2016-12-11] MEDS: BUDESONIDE/FORMOTEROL FUMARATE 160/4.5 60 PUFFS/INHALER INH SCH (08:33)
[2016-12-11] MEDS: IPRATROPIUM BROMIDE/ALBUTEROL respimat INH INH SCH ×2 (08:36→13:23)
[2016-12-11] MEDS: ATORVASTATIN 10 MG TAB PO SCH (08:37)
[2016-12-11] MEDS: NICOTINE 21 MG/24 HR TDSY TD SCH (08:37)
[2016-12-11] MEDS: CHOLECALCIFEROL 1000 INTER.UNIT TAB PO SCH (08:37)
[2016-12-11] MEDS: AMOXICILLIN 500 MG CAP PO SCH (08:37)
[2016-12-11] MEDS: LEVETIRACETAM 500 MG TAB PO SCH (08:37)
[2016-12-11] MEDS: PHENYTOIN SODIUM ER 100 MG CAP PO SCH (08:37)
[2016-12-11] MEDS: PHENOBARBITAL 32.4 MG TAB PO SCH (08:42)
--- NOTE | 2016-12-11 13:10 | Progress Note ---
Subjective Date of Service: Dec 11, 2016. Subjective Pt evaluation today including: conversation w/ patient, physical exam, lab review, review of studies, review of inpatient medication list Saw/examined the patient in room 255 No problems/issues to note today Eager to go home. Problem List Medical Problems: (1) Fall Status: Acute (2) Fever Status: Acute (3) Hypoxia Status: Acute (4) Lobar pneumonia Status: Acute (5) Subdural hematoma Status: Acute Review of Systems Respiratory: No cough, No sputum, No shortness of breath Cardiac: No chest pain Neurologic: No balance problems Medications Current Inpatient Medications Medications (Trade) Dose Ordered Sig/Torri Route Start Time Stop Time Status Last Admin Dose Admin Acetaminophen (Tylenol Tab) 650 mg Q6H PRN PO 12/06/16 09:45 01/05/17 09:44 12/10/16 16:33 650 MG Ondansetron HCl (Zofran Inj) 4 mg Q6H PRN IV 12/06/16 09:45 01/05/17 09:44 12/08/16 18:42 4 MG Atorvastatin Calcium (Lipitor Tab) 10 mg DAILY PO 12/07/16 09:00 01/06/17 08:59 12/11/16 08:37 10 MG Budesonide/ Formoterol Fumarate (Symbicort 160/ 4.5 Inh) 2 puffs BID INH 12/06/16 21:00 01/05/17 20:59 12/08/16 07:59 2 PUFFS Cholecalciferol (Vitamin D Tab) 1,000 inter.unit BID PO 12/06/16 21:00 01/05/17 20:59 12/11/16 08:37 1,000 INTER.UNIT Folic Acid (Folvite Tab) 1 mg DAILY PO 12/07/16 09:00 01/06/17 08:59 12/11/16 08:37 1 MG Albuterol/ Ipratropium (Combivent Respimat Inh) 1 puffs QID INH 12/06/16 13:00 01/05/17 12:59 12/11/16 08:36 1 PUFFS Levetiracetam (Keppra Tab) 1,000 mg BID PO 12/06/16 12:30 01/05/17 20:59 12/11/16 08:37 1,000 MG Phenobarbital (Phenobarbital Tab) 129.6 mg BID PO 12/06/16 12:30 01/05/17 20:59 12/11/16 08:42 129.6 MG Albuterol (Ventolin Hfa Inhaler) 2 puffs TID PRN INH 12/06/16 10:00 01/05/17 09:59 12/08/16 14:30 2 PUFFS Nicotine (Nicoderm Cq 21MG Patch) 1 patch QAM TD 12/07/16 09:00 01/06/17 08:59 12/11/16 08:37 1 PATCH Miscellaneous (Remove Nicoderm Patch) 1 ea HS N/A 12/07/16 21:00 01/06/17 20:59 12/10/16 20:32 1 EA Phenytoin Sodium (Dilantin Er Cap) 200 mg DAILY PO 12/08/16 09:00 01/05/17 20:59 12/11/16 08:37 100 MG Phenytoin Sodium (Dilantin Er Cap) 100 mg HS PO 12/07/16 21:00 01/06/17 20:59 12/10/16 20:34 100 MG Amoxicillin (Amoxil Cap) 500 mg BID PO 12/08/16 21:00 12/13/16 20:59 12/11/16 08:37 500 MG Enteral Nutritional Formula (Boost Glucose Control) 1 can BIDM PO 12/09/16 08:00 01/08/17 07:59 12/10/16 16:32 1 CAN Docusate Sodium (coLACE CAP) 100 mg BID PO 12/09/16 21:00 01/08/17 20:59 12/10/16 09:16 100 MG Mirtazapine (Remeron Tab) 15 mg HS PO 12/09/16 21:00 01/08/17 20:59 12/10/16 20:34 15 MG Objective Vital Signs Date Time Temp Pulse Resp B/P (MAP) Pulse Ox O2 Delivery O2 Flow Rate FiO2 12/11/16 08:00 Room Air 12/11/16 07:19 37.1 71 18 124/79 (94) 92 Room Air 12/11/16 00:00 Room Air 12/11/16 00:00 36.7 74 20 128/75 (92) 92 Room Air 12/10/16 16:00 94 Room Air 12/10/16 14:47 36.6 64 18 128/78 (47) 94 Physical Exam General Appearance: no apparent distress, + thin Respiratory/Chest: no respiratory distress, no accessory muscle use Cardiovascular: regular rate, rhythm, no edema, no murmur Extremities: + pertinent finding (involuntary movement) Assessment and Plan This is a 66yo M with a PMH of COPD, tobacco use disorder, h/o seizures and h/o TIA who presents after a mechanical fall at home. Patient normally ambulates with a cane but misplaced it this week. Subdural hematoma: 12/11 plan to d/c to [facility] PT/OT restart Plavix in one week Dilantin - tapered yesterday, neurology 12/10 continue PT/OT patient agreeable to rehab accepted to [facility] - awaiting bed availability outpatient [place]'s chorea testing restart Plavix within the week taper Dilantin as outpatient 12/09 continue PT/OT hold Plavix x1week d/c to [facility] outpatient chorea testing at [place] 12/08 hold Plavix for one week, then restart no need to repeat imaging PT/OT outpatient chorea genetic testing will need placement smoking cessation discussed - counseled - patient will attempt - will write for nicotine patches attempting to wean dilantin; continue Keppra and phenobarbital -S/p mechanical fall onto L side today -Presence of bruise under L eye, small sub-conjunctival hemorrhage of L eye -Initial CT head "Findings concerning for trace acute subdural hematoma along the frontal convexity" -Consulted neuro, who reviewed case and ordered a repeat CT head with showed: -"Slight increased density along the left tentorium and a small focus of extra-axial increased density posterior to the left parietal lobe consistent with a trace left-sided subdural hematoma" -Currently asymptomatic; monitor closely on tele -Repeat CT head in 12 hours -Appreciate further recommendations from neuro -Hold Plavix - Repeat CT of the Head-Hemorrhage cleared -MRI-shows very minimal SAH -Pt is totally asymptomatic Mechanical fall: H/O Ambulatory Dysfunction with recurrent falls -Likely 2/2 peripheral neuropathy, deconditioning -Work up to determine etiology of neuropathy -PT/OT evals Mild COPD Exacerbation: -Leukocytosis of 13.5, increased sputum production, chills -CXR without evidence of PNA -Continue home inhalers -Added nebs and PO azithromycin -PRN O2 per protocol -No acute issue Tobacco Use Disorder Has had a long discussion Will not quit smoking Will not take any Nicotine,Meds and or Gum Peripheral neuropathy: -H/o DM II without medical management -Hgb a1c pending -5.9 -B12, folate, TSH, RPR ordered -normal -Cause could be DM II and Phenytoin and or Idiopathic H/o seizures: -Stable -Continue home regimen of Dilantin, phenobarbital, Keppra -Dilantin and Phenobarbital levels are therapeutic -Keppra level pending H/o TIA: -No current symptoms suggestive of TIA, CVA -Plavix held 2/2 subdural hematoma DM II: -No medical management in past, per patien t -Hgb a1c pending DVT Ppx: SCDs Code status: FULL PCP: ALINA Hernandez ([facility]) Dispo: Plan to return home once medically stable
[2016-12-11] MEDS ORDERED: AMX500 PO (13:14)
[2016-12-11] MEDS ORDERED: DLN100 PO ×2 (13:14)
[2016-12-11] MEDS ORDERED: NICO21DI4 TD (13:14)
[2016-12-11] MEDS ORDERED: CLC100 PO (13:14)
[2016-12-11] MEDS ORDERED: NUTR-7 PO (13:14)
[2016-12-11] MEDS ORDERED: CLOP1TAB15 PO (13:14)
--- NOTE | 2016-12-11 13:19 | Discharge Instructions ---
Discharge Instructions Date of Service Dec 11, 2016. Admission Reason for Admission: Copd Exacerbation, Subdural Hematoma Discharge Discharge Diagnosis / Problem: Subdural hematoma, Mechanical Fall Discharge Goals Goal(s): Decrease discomfort, Improve function, Diagnostic testing, Therapeutic intervention Activity Recommendations Activity Limitations: resume your previous activity . Instructions / Follow-Up Instructions / Follow-Up Please follow-up with primary care physician after stay at [facility] Please follow-up with neurology at the [place] - to taper Dilantin * You will be discharged with amoxicillin for three more days (antibiotic for UTI) * Your dose of Dilantin will change to 200mg in the morning and 100mg in the evening - this should be tapered as an outpatient * Genetic testing for Greenwood's chorea should be done as an outpatient * Restart Plavix on 12/14 Current Hospital Diet Patient's current hospital diet: Regular Diet Discharge Diet Recommended Diet: Regular Diet Pending Studies Studies pending at discharge: no Laboratory Results Hemoglobin A1c Test 12/06/16 03:39 Range/Units Estimated Average Glucose 123 mg/dl Hemoglobin A1c 5.9 H 4.5-5.6 % Medical Emergencies . Who to Call and When: Medical Emergencies: If at any time you feel your situation is an emergency, please call 911 immediately. . Non-Emergent Contact Non-Emergency issues call your: Primary Care Provider, Neurologist . . "Provider Documentation" section prepared by Hayden Concepcion. . VTE Core Measure Inpt VTE Proph given/why not?: SCD's
--- NOTE | 2016-12-11 13:21 | Discharge Summary ---
Discharge Summary Date of Service Dec 11, 2016. Discharge Summary Admission Date: Dec 06, 2016 at 09:16 Discharge Date: Dec 11, 2016 Discharge Disposition: Rehab Principal Diagnosis: Mechanical Fall Subdural Hematoma Seizure disorder Enterococcal UTI Medication Reconciliation New Medications: Amoxicillin (Amoxicillin) 500 Mg Cap 500 MG PO BID for 3 Days, #6 CAP Docusate Sodium (Docusate Sodium) 100 Mg Cap 100 MG PO BID for 30 Days, #60 CAP Nicotine (Nicoderm Cq) 21 Mg/24 Hr Dis 21 MG TD QAM for 30 Days Nutritional Supplements (Boost) 1 Liq Liq 1 CAN PO BIDM for 30 Days Phenytoin Sodium (Dilantin) 100 Mg Cap 200 MG PO DAILY for 30 Days, #60 CAP Phenytoin Sodium (Dilantin) 100 Mg Cap 100 MG PO HS for 30 Days, #30 CAP Changed Medications: Clopidogrel (Plavix) 75 Mg Tab 75 MG PO DAILY for 30 Days, #30 TAB (Medication details modified) restart on 12/14 Continued Medications: Albuterol Sulfate (Proair Respiclick) 108 Mcg/Act Aer 2 PUFFS INH TID PRN for SOB/Wheezing Atorvastatin (Lipitor) 20 Mg Tab 10 MG PO DAILY, TAB Budesonide/Formoterol Fumarate (Symbicort 160/4.5 Inhaler ) Aero 2 PUFFS INH BID, INHALER Cholecalciferol (Vitamin D3) 1,000 Unit Tab 1 TAB PO BID for 90 Days, #180 TAB 3 Refills Folic Acid (Folvite) 1 Mg Tab 1 MG PO DAILY, TAB Home O2 Therapy (Oxygen) Gas 2 LITERS NA PRN PRN for AMBULATION, BTL Ipratropium-Albuterol (Combivent Respimat) 1 Aer Aer 1 PUFFS INH QID, INH Levetiractam (Levetiracetam) 500 Mg Tab 1000 MG PO BID Phenobarbital (Phenobarbital) 32.4 Mg Tab 129.6 MG PO BID Discontinued Medications: Phenytoin Sodium (Dilantin) 100 Mg Cap 200 MG PO BID for 30 Days, #120 CAP 2 Refills Admission Information HPI (per Admitting provider): This is a 66yo M with a PMH of COPD, tobacco use disorder, h/o seizures and h/o TIA who presents after a mechanical fall at home. Patient normally ambulates with a cane but misplaced it this week. Was crawling down stairs headfirst when he lost his balance and fell forward onto his left side. Endorses hitting the frontal aspect of his head but denies LOC. Denies any precipitating lightheadedness, seizure, chest pain or SOB. States that his thought he was confused following the fall but he does not feel confused. Endorses chest discomfort yesterday afternoon but states that it resolved last evening. Endorses L-sided headache that is throbbing and is sensitive to the touch. Obtained bruise under L eye during fall but denies any other injuries. Denies lightheadedness, confusion, visual changes, slurred speech, CP, abdominal pain, nausea, vomiting. Takes Plavix for a history of a TIA. Endorses chronic LE numbness. States that he has been falling more frequently lately as a result of this bilateral leg numbness. Endorses 1 fall per month. Has been told by a PCP that he should be evaluated with an EMG for this.Has been diagnosed with DM II in the past but has never taken any medication. Also endorses chills, productive cough. Denies fever, URI symptoms, worsening of baseline dyspnea on exertion, SOB. Has not needed home O2. Has been taking all scheduled inhalers. Physical Exam (per Admitting): General Appearance: no apparent distress, + cachetic Head: normocephalic, atraumatic, + evidence of trama (Presence of bruising under L eye. No other bruising, scratches noted.) Eyes: PERRL, EOMI, + pertinent finding (Presence of a small injection to conjunctiva lateral to L iris ) ENT: normal ENT inspection (Dry mucous membranes ), hearing grossly normal, pharynx normal Neck: supple, no adenopathy, trachea midline Respiratory/Chest: chest non-tender, no respiratory distress, no accessory muscle use, + decreased breath sounds (No wheezing, rales, rhonci), + pertinent finding (Presence of bruising on L ribs. Tender with inspiration. ) Cardiovascular: regular rate, rhythm, no edema, no murmur, normal peripheral pulses Abdomen/GI: normal bowel sounds, non tender, soft, no organomegaly Back: normal inspection, no CVA tenderness Extremities/Musculoskelatal: normal inspection, no calf tenderness, no pedal edema Neurologic/Psych: final assembler II-XII nml as tested, no motor/sensory deficits, alert , normal mood/affect, oriented x 3 Skin: normal color, warm/dry, no rash Hospital Course This is a 66yo M with a PMH of COPD, tobacco use disorder, h/o seizures and h/o TIA who presents after a mechanical fall at home. Patient normally ambulates with a cane but misplaced it this week. Subdural hematoma: 12/11 plan to d/c to [facility] PT/OT restart Plavix in one week Dilantin - tapered yesterday, neurology 12/10 continue PT/OT patient agreeable to rehab accepted to [facility] - awaiting bed availability outpatient Sarah's chorea testing restart Plavix within the week taper Dilantin as outpatient 12/09 continue PT/OT hold Plavix x1week d/c to [facility] outpatient chorea testing at [place] 12/08 hold Plavix for one week, then restart no need to repeat imaging PT/OT outpatient chorea genetic testing will need placement smoking cessation discussed - counseled - patient will attempt - will write for nicotine patches attempting to wean dilantin; continue Keppra and phenobarbital -S/p mechanical fall onto L side today -Presence of bruise under L eye, small sub-conjunctival hemorrhage of L eye -Initial CT head "Findings concerning for trace acute subdural hematoma along the frontal convexity" -Consulted neuro, who reviewed case and ordered a repeat CT head with showed: -"Slight increased density along the left tentorium and a small focus of extra-axial increased density posterior to the left parietal lobe consistent with a trace left-sided subdural hematoma" -Currently asymptomatic; monitor closely on tele -Repeat CT head in 12 hours -Appreciate further recommendations from neuro -Hold Plavix - Repeat CT of the Head-Hemorrhage cleared -MRI-shows very minimal SAH -Pt is totally asymptomatic Mechanical fall: H/O Ambulatory Dysfunction with recurrent falls -Likely 2/2 peripheral neuropathy, deconditioning -Work up to determine etiology of neuropathy -PT/OT evals Mild COPD Exacerbation: -Leukocytosis of 13.5, increased sputum production, chills -CXR without evidence of PNA -Continue home inhalers -Added nebs and PO azithromycin -PRN O2 per protocol -No acute issue Tobacco Use Disorder Has had a long discussion Will not quit smoking Will not take any Nicotine,Meds and or Gum Peripheral neuropathy: -H/o DM II without medical management -Hgb a1c pending -5.9 -B12, folate, TSH, RPR ordered -normal -Cause could be DM II and Phenytoin and or Idiopathic H/o seizures: -Stable -Continue home regimen of Dilantin, phenobarbital, Keppra -Dilantin and Phenobarbital levels are therapeutic -Keppra level pending H/o TIA: -No current symptoms suggestive of TIA, CVA -Plavix held 2/2 subdural hematoma DM II: -No medical management in past, per patien t -Hgb a1c pending DVT Ppx: SCDs Code status: FULL PCP: ALINA Hernandez ([facility]) Dispo: Plan to return home once medically stable Total time spent on discharge = 50 minutes This includes examination of the patient, discharge planning, medication reconciliation, and communication with other providers. Discharge Instructions Please follow-up with primary care physician after stay at [facility] Please follow-up with neurology at the [place] - to taper Dilantin * You will be discharged with amoxicillin for three more days (antibiotic for UTI) * Your dose of Dilantin will change to 200mg in the morning and 100mg in the evening - this should be tapered as an outpatient * Genetic testing for Seneca's chorea should be done as an outpatient * Restart Plavix on 12/14
[2016-12-11 13:42] VITALS: BP 124/79; PULSE 71; TEMP 37.1; O2SAT 92
[2016-12-11] MEDS ORDERED: LEVALBUTEROL 1.25MG/0.5ML NEB INH SCH (15:00)
[2016-12-11] MEDS ORDERED: IPRATROPIUM BROMIDE NEB SOLN 0.02% 2.5 ML VIAL INH SCH (15:00)
[2016-12-11] MEDS ORDERED: RMR15 PO (15:18)
== END 2016-12-11 15:35 | DRG 86 ==
LOC: EDBD 03:05 → C.EDA 03:07 → C.EDINP 09:16 → ENRESERV 13:38 → C.2T 14:22 → ENRESERV 12-07 09:46 → C.MS2W 12-07 11:11
PROVIDERS: ADMIT Internal Medicine; ATTEND Family Medicine
DX: S06.5X0A Traumatic subdural hemorrhage without loss of consciousness, initial encounter (principal); J44.1 Chronic obstructive pulmonary disease with (acute) exacerbation; N39.0 Urinary tract infection, site not specified; E11.9 Type 2 diabetes mellitus without complications; G40.909 Epilepsy, unspecified, not intractable, without status epilepticus; F17.200 Nicotine dependence, unspecified, uncomplicated; W19.XXXA Unspecified fall, initial encounter

== ENCOUNTER → 2017-07-20 | Day surgery (SDC) | payer OTHER ==
[2017-07-12 14:35] VITALS: Ht 188 cm; Wt 63.6 kg
[~2017-07-20] VITALS: Ht 188 cm; Wt 63.6 kg
[~2017-07-20] MED LIST changes: +ALBU18002 INH; -FOLI1TAB7 PO; +FOLI1TAB8 PO; +LIDOCAINE HCL 2% 2 ML VIAL (20MG/ML) ONE; +MIRT1TAB27 PO; +MULT-351 PO; +NUTR-7 PO; -OLODATEROL/TIOTROP INH; -OXGN; +PROPOFOL IV EMULSION 10 MG/ML 20 ML VIAL ONE; +RANI1TAB13 PO; +SYMIN160 INH; -VNTHFA/IN INH
--- NOTE | 2017-07-20 14:22 | Endo History and Physical ---
History & Physical Date of Service: July 20, 2017. Chief Complaint: hx polyps Referring Physician: [facility] History of Present Illness For colonoscopy Past Surgical History Hx Cardiac Surgery: No Hx Internal Defibrillator: No Hx Pacemaker: No Hx Abdominal Surgery: No Hx of Implantable Prosthesis: No Hx Post-Op Nausea and Vomiting: No Hx Cancer Surgery: No Hx Thoracic Surgery: No Hx Orthopedic: Yes (spinal surgery, neck surgery, right carpal tunnel, L ARM ARTERY REPAIR) Hx Urinary Tract Surgery: No Family History Colon CA, Polyp Social History Smoking Status: Current Every Day Smoker Hx Substance Use: No Hx Alcohol Use: Yes (DRINKS ABOUT ONCE A YEAR) Allergies Coded Allergies: No Known Allergies (Unverified , 07/12/17) Current Medications Reported Home Medications Medications Dose Route/Sig Max Daily Dose Days Date Category Dose Instructions Acid Memorial Counselor (Ranitidine Hcl) 75 Mg Tab 1 Tab PO BID 07/12/17 Reported Multi Vitamin Mens (Multiple Vitamin) 1 Tab Tab 1 Tab PO DAILY 07/12/17 Reported Mirtazapine 7.5 Mg Tab 1 Tab PO DAILY 07/12/17 Reported Dilantin (Phenytoin Sodium) 100 Mg Cap 1 Cap PO DAILY 30 07/12/17 Reported Boost (Nutritional Supplements) 1 Liq Liq 1 Can PO BIDM 30 12/11/16 Rx Plavix (Clopidogrel Bisulfate) 75 Mg Tab 75 Mg PO DAILY 30 12/11/16 Rx restart on 12/14 Proair Respiclick (Albuterol Sulfate) 108 Mcg/Act Aer 2 Puffs INH TID PRN 12/06/16 Reported Symbicort 160/4.5 Inhaler (Budesonide/Formoterol Fumarate) Aero 2 Puffs INH BID 12/06/16 Reported Combivent Respimat (Ipratropium-Albuterol) 1 Aer Aer 1 Puffs INH QID 12/06/16 Reported Phenobarbital 32.4 Mg Tab 129.6 Mg PO BID 01/08/16 Reported Lipitor (Atorvastatin Calcium) 20 Mg Tab 10 Mg PO DAILY 01/08/16 Reported Folvite (Folic Acid) 1 Mg Tab 1 Mg PO DAILY 01/08/16 Reported Levetiracetam (Levetiractam) 500 Mg Tab 1,000 Mg PO BID 01/08/16 Reported Vitamin D3 (Cholecalciferol) 1,000 Unit Tab 1 Tab PO BID 90 01/08/16 Reported Vital Signs Weight (Kilograms): 63.64 Height (Feet): 6 Height (Inches): 2 Physical Exam General Appearance: + thin Respiratory/Chest: Auscultation: deminished air movement Cardiovascular: Heart Auscultation: RRR Abdomen: Inspection & Palpation: soft Assessment and Plan Hx polyps for colonoscopy
--- NOTE | 2017-07-20 15:07 | Discharge Instructions ---
Endoscopy Patient Instructions Date / Procedure(s) Performed July 20, 2017. Colonoscopy Allergy Information Coded Allergies: No Known Allergies (Unverified , 07/12/17) Discharge Date / Findings July 20, 2017. polyps, diverticulosis Medication Instructions Restart Stopped Medication(s): resume meds Reported Home Medications Medications Dose Route/Sig Max Daily Dose Days Date Category Dose Instructions Acid Manager Culture (Ranitidine Hcl) 75 Mg Tab 1 Tab PO BID 07/12/17 Reported Multi Vitamin Mens (Multiple Vitamin) 1 Tab Tab 1 Tab PO DAILY 07/12/17 Reported Mirtazapine 7.5 Mg Tab 1 Tab PO DAILY 07/12/17 Reported Dilantin (Phenytoin Sodium) 100 Mg Cap 1 Cap PO DAILY 30 07/12/17 Reported Boost (Nutritional Supplements) 1 Liq Liq 1 Can PO BIDM 30 12/11/16 Rx Plavix (Clopidogrel Bisulfate) 75 Mg Tab 75 Mg PO DAILY 30 12/11/16 Rx restart on 12/14 Proair Respiclick (Albuterol Sulfate) 108 Mcg/Act Aer 2 Puffs INH TID PRN 12/06/16 Reported Symbicort 160/4.5 Inhaler (Budesonide/Formoterol Fumarate) Aero 2 Puffs INH BID 12/06/16 Reported Combivent Respimat (Ipratropium-Albuterol) 1 Aer Aer 1 Puffs INH QID 12/06/16 Reported Phenobarbital 32.4 Mg Tab 129.6 Mg PO BID 01/08/16 Reported Lipitor (Atorvastatin Calcium) 20 Mg Tab 10 Mg PO DAILY 01/08/16 Reported Folvite (Folic Acid) 1 Mg Tab 1 Mg PO DAILY 01/08/16 Reported Levetiracetam (Levetiractam) 500 Mg Tab 1,000 Mg PO BID 01/08/16 Reported Vitamin D3 (Cholecalciferol) 1,000 Unit Tab 1 Tab PO BID 90 01/08/16 Reported Provider Instructions Activity Restrictions - No exercising or heavy lifting for 24 hours. - Do not drink alcohol the day of the procedure. - Do not drive a car or operate machinery until the day after the procedure. - Do not make any important decisions or sign important papers in 24 hours after the procedure. Following Day: - Return to full activity which may include returning to work/school. Diet Start your diet with liquids and light foods (jello, soup, juice, toast). Then eat your usual diet if not nauseated. Treatment For Common After Affects For mild abdominal pain, bloating, or excessive gas: - Rest - Eat lightly - Lie on right side Follow-Up Information Follow-up with as scheduled Anesthesia Information What You Should Know You have had a procedure that required some medicine to reduce anxiety and discomfort. This treatment is called moderate sedation. After receiving the treatment, you may be sleepy, but you will be able to breathe on your own. The effects of the treatment may last for several hours. Follow these instructions along with Activity/Diet recommendations noted above: * Do NOT do anything where dizziness or clumsiness would be dangerous. * Rest quietly at home today, then you can be up and about tomorrow. * Have a responsible person stay with you the rest of today. * You may have had an I.V. today. If so, you may take the dressing off later today. Recommendations Call your doctor if: * Trouble breathing * Continuous vomiting for more than 24 hours * Temperature above 101 degrees * Severe abdominal pain or bloating * Pain not relieved by pain medicine ordered * There is increased drainage or redness from any incision * A large amount of rectal bleeding greater than 2-3 tablespoons. (If you had a polyp/s removed or have hemorrhoids, a small amount of blood - from the rectum is to be expected.) * You have any unanswered questions or concerns. IN THE EVENT OF A SERIOUS EMERGENCY, GO TO THE NEAREST EMERGENCY ROOM Your discharge instructions were prepared by provider Mat Lewis. Patient Instructions Signature Page Marcio Garcia Patient (or Guardian) Signature/Date: I have read and understand the instructions given to me by my caregivers. Caregiver/RN/Doctor Signature/Date: The above-named patient and/or guardian has received patient instructions on this date. + Original Patient Signature Page (only) stays with chart. Please make copy for patient.
--- NOTE | 2017-07-20 15:15 | Anesthesiology Progress Note ---
Anesthesia Post Op Note Date & Time July 20, 2017 at 15:14 Vital Signs Pain Intensity: 0 Vital Signs Past 12 Hours Date Time Temp Pulse Resp B/P (MAP) Pulse Ox O2 Delivery O2 Flow Rate FiO2 07/20/17 14:34 36.8 86 86 142/71 (94) 96 Room Air Notes Mental Status: alert / awake / arousable, participated in evaluation Pt Amnestic to Procedure: Yes Nausea / Vomiting: adequately controlled Pain: adequately controlled Airway Patency, RR, SpO2: stable & adequate BP & HR: stable & adequate Hydration State: stable & adequate Anesthetic Complications: no major complications apparent
--- NOTE | 2017-07-20 15:15 | GI REPORT ---
Patient Name: Marcio Garcia Procedure Date: 07/20/2017 2:24 PM Date of : 1950 Admit Type: Outpatient Age: 66 Gender: Male Attending MD: Mat Lewis MD Procedure: Colonoscopy Providers: Mat Lewis MD Referring MD: Annetta Colin Indications: Personal history of colonic polyps Medicines: Propofol total dose 270 mg IV, Lidocaine 40 mg IV Complications: No immediate complications. Estimated Blood Loss: Estimated blood loss was minimal. Procedure: Pre-Anesthesia Assessment: - Prior to the procedure, a History and Physical was performed, and patient medications, allergies and sensitivities were reviewed. The patient's tolerance of previous anesthesia was reviewed. - The risks and benefits of the procedure and the sedation options and risks were discussed with the patient. All questions were answered and informed consent was obtained. After I obtained informed consent, the scope was passed under direct vision. Throughout the procedure, the patient's blood pressure, pulse, and oxygen saturations were monitored continuously. The Scope was introduced through the anus and advanced to the cecum, identified by appendiceal orifice and ileocecal valve. The colonoscopy was performed without difficulty. The patient tolerated the procedure well. The quality of the bowel preparation was good. Findings: Multiple diverticula were found in the sigmoid colon. A 3 mm polyp was found in the cecum. The polyp was sessile. The polyp was removed with a cold biopsy forceps. Resection and retrieval were complete. Estimated blood loss was minimal. Two sessile polyps were found in the rectum. The polyps were 2 to 3 mm in size. These polyps were removed with a cold biopsy forceps. Resection and retrieval were complete. Estimated blood loss was minimal. Impression: - Diverticulosis in the sigmoid colon. - One 3 mm polyp in the cecum, removed with a cold biopsy forceps. Resected and retrieved. - Two 2 to 3 mm polyps in the rectum, removed with a cold biopsy forceps. Resected and retrieved. Recommendation: - Discharge patient to home (ambulatory). - Continue present medications. - Await pathology results. - Return to primary care physician ARTI. Romulo Ramirez MD 07/20/2017 3:15:24 PM This report has been signed electronically. Note Initiated On: 07/20/2017 2:24 PM Number of Addenda: 0 I attest to the content of the Intraoperative Record and orders documented therein, exceptions below {[id number]}
[2017-07-20 15:42] VITALS: BP 134/80; PULSE 57; O2SAT 96
== END | disposition home or self-care (01) ==
LOC: C.GI 14:07
PROVIDERS: ATTEND Internal Medicine Gastroenterology
DX: Z12.11 Encounter for screening for malignant neoplasm of colon (principal); D12.0 Benign neoplasm of cecum; K62.1 Rectal polyp; K57.30 Diverticulosis of large intestine without perforation or abscess without bleeding; Z86.010 Personal history of colon polyps; Z83.71 Family history of colonic polyps; Z80.0 Family history of malignant neoplasm of digestive organs; J44.9 Chronic obstructive pulmonary disease, unspecified; E78.5 Hyperlipidemia, unspecified; F17.200 Nicotine dependence, unspecified, uncomplicated; I48.91 Unspecified atrial fibrillation; G40.909 Epilepsy, unspecified, not intractable, without status epilepticus; Z86.73 Personal history of transient ischemic attack (TIA), and cerebral infarction without residual deficits; F32.9 Major depressive disorder, single episode, unspecified; Z79.02 Long term (current) use of antithrombotics/antiplatelets